=== PATIENT | male | born 1975 | race Caucasian/White ===

== ENCOUNTER 2019-10-27 12:56 | Emergency (ER) | payer MEDICAID, SELFPAY | END 2019-10-27 15:16 | disposition home or self-care (01) | PROVIDERS: Emergency Provider Nurse Practitioner Family; Family Provider Family Medicine; Visit Provider Nurse Practitioner Family | DX: J44.0 Chronic obstructive pulmonary disease with (acute) lower respiratory infection (principal); J20.9 Acute bronchitis, unspecified; Z87.891 Personal history of nicotine dependence ==

== ENCOUNTER 2019-11-04 07:09 | Day surgery (SDC) | payer MEDICAID, SELFPAY ==
[2019-11-02 12:39] VITALS: BMI 31.9
[2019-11-04 07:22] VITALS: BP 111/75; PULSE 107; RESP 18; TEMP 36.1; O2SAT 92
[2019-11-04 07:23] VITALS: BP 126/93; PULSE 128; RESP 18; TEMP 36.2; O2SAT 94
[2019-11-04 07:45] VITALS: BMI 31.9
[2019-11-04] MEDS: sodium chloride 0.9% 1,000 ML 30 ML IV (07:50)
--- NOTE | 2019-11-04 07:51 | XR_ITS ---
WS: [id number] CHEST XRAY TECHNIQUE: Portable chest. CLINICAL INFORMATION: PREOP DEFIBRILLATOR GENERATOR EXCHANGE COMPARISON: FINDINGS: AICD. Heart: Normal cardiac silhouette. Lungs: Lungs are clear. No consolidation or pleural effusion. Bones: Normal visualized bony structures. XR/XR chest 1V portable [id number] IMPRESSION: No acute chest findings
--- NOTE | 2019-11-04 07:57 | ANES.PREANES ---
Pre-Anesthetic Assessment Pre-Anesthetic Assessment: Height/Weight: Height 1.7 m Weight 92.533 kg Temp Pulse Resp BP Pulse Ox 97.2 F L 128 H 18 126/93 94 11/04/19 07:23 11/04/19 07:23 11/04/19 07:23 11/04/19 07:23 11/04/19 07:23 Proposed Procedure: Operation Date: 11/04/19 08:45 Proposed Procedures p Defibillator Generator Exchange(Not Applicable) - Yoel Aparicio MD Social: Social History: No alcohol and No tobacco Exam: Pre-Anes Outpt Exam: alert, oriented x 3, clear to auscultation bilaterally and regular rate & rhythm Airway: Cervical ROM: WNL MP: 1 Dentition: False (top dentures) and Other (missing (multiple)) Pulmonary: Pulmonary: Sleep apnea (cpap) and URI (possible recent bronchitis (1 week ago - no left over symptoms, took antibiotics and inhaler)) CV/HEM: CV/HEM: CHF ( patient states hx of EF of 33%) : : None reported Hepatic: Hepatic: None reported GI: GI: None reported Metabolic: Metabolic: DM Musc/skel: Musc/skel: OA/DJD Neuropsych: Neuropsych: Depression Anesthetic Plan: ASA status: IV Anesthesia: MAC Risk of > 500 ml blood loss (7ml/kg in children): No PFSH Anesthesia PFSH: Family History (Updated 10/25/19 @ 14:31 by Yu Abbott LPN) Father Myocardial infarct CABG Diabetes CAD (coronary artery disease) Mother Diabetes Hypertension Other Cancer Stroke Denies family history of Anesthesia complication Bleeding disorder Data Anesthesia Cardiac Studies: No Data to Display
[2019-11-04 07:58] LABS: Glucose Point of Care 248 mg/dL (70-110)
--- NOTE | 2019-11-04 09:12 | PM.OPSURHP ---
Providers/Chief Complaint Admitting Physician: Markus Primary Care Provider: Héctor Snyder MD Chief Complaint: generator exchange generator exchange History of Present Illness Nguyễn Nieto is a 44 year old male who presents for planned pacing defibrillator change with the current defibrillator at end of service. He has a history of CHF and nonischemic cardiomyopathy. Ejection fraction 35%. He reports he believes the defibrillator discharge once last year. Review of Systems General: Reports: 10 or more systems reviewed and unremarkable except in HPI and below Const: Denies: fever or chills Card: Reports: edema and shortness of breath on exertion; Denies: chest pain Resp: Reports: shortness of breath Skin/Breast: Denies: rash Psych: Denies: anxiety or depression Endo: Denies: cold intolerance Medications/Allergies Home Medications Medication Instructions Recorded Confirmed Last Taken Type tiagabine [Gabitril] 4 mg PO DAILY 11/04/19 11/04/19 11/03/19 History vortioxetine [Trintellix] 10 mg PO DAILY 11/04/19 11/04/19 11/02/19 History Allergies Allergy/AdvReac Type Severity Reaction Status Date / Time atorvastatin AdvReac pancreatiti Verified 11/04/19 07:25 s liraglutide [From Victoza] AdvReac pancreatiti Verified 11/04/19 07:25 s metformin AdvReac pancreatiti Verified 11/04/19 07:25 s sitagliptin [From Januvia] AdvReac pancreatiti Verified 11/04/19 07:25 s PFSH PFSH: Statuses (acute, chronic, etc) shown below reflect problem list status as previously entered and may not be historically accurate Surgical History (Updated 11/04/19 @ 09:14 by Yoel Aparicio MD) Status post implantation of automatic cardioverter/defibrillator (AICD) (Acute) Family History (Updated 10/25/19 @ 14:31 by Yu Abbott LPN) Father Myocardial infarct CABG Diabetes CAD (coronary artery disease) Mother Diabetes Hypertension Other Cancer Stroke Denies family history of Anesthesia complication Bleeding disorder Vital Signs Vitals Signs: Last Vital Signs Temp 97.2 F L 11/04/19 07:23 Pulse 128 H 11/04/19 07:23 Resp 18 11/04/19 07:23 BP 126/93 11/04/19 07:23 Pulse Ox 94 11/04/19 07:23 Weight: Weight last 48 hrs Weight 204 lb Weight 204 lb Physical Exam Narrative: EXAM NARRATIVE: Well-developed middle-aged gentleman in no apparent distress Resp: COMMON NORMALS: normal respiratory effort AUSCULTATION: clear to auscultation bilaterally Cardio: COMMON NORMALS: no JVD, regular rate, regular rhythm, S1 normal heart sound and no murmurs RATE: regular rate and bradycardic RHYTHM: regular rhythm HEART SOUNDS: S1 normal and S2 normal Extremity: COMMON NORMALS: no clubbing, cyanosis or edema GENERAL: Yes normal exam except as noted A&P Assessment and plan (1) Status post implantation of automatic cardioverter/defibrillator (AICD): 44-year-old gentleman with pacing cardiac defibrillator in place now at end of service. Generator replacement is required. Rationale for this was carefully discussed. Particular risk related to infection, bleeding, or injury to the leads was carefully discussed. Appropriate consents have been provided for review and signature. Status: Acute Code(s): Z95.810 - Presence of automatic (implantable) cardiac defibrillator Coding Level of Care Code Acute Steel Plate Printer for Chg Fwd Diagnoses Status post implantation of automatic cardioverter/defibrillator (AICD) Z95.810
[2019-11-04 09:13] LABS: Basophils % 0.4 %; Eosinophils # 0.1 10^3/uL (0.0-0.8); Eosinophils % 1.2 %; Hematocrit 42.1 % (42.0-52.0); Hemoglobin 14.8 g/dL (11.7-16.6); Lymphocytes # 2.3 10^3/uL (0.8-4.8); Lymphocytes % 28.1 %; Mean Corpuscular HGB Conc 35.2 g/dL (30.0-36.0); Mean Corpuscular Volume 88.3 fL (80-94); Mean Platelet Volume 9.6 fL (7.4-10.4); Monocytes # 0.6 10^3/uL (0.2-0.9); Monocytes % 7.1 %; Neutrophils % 59.9 %; Nucleated Red Blood Cells % 0 %; Platelet Count 357 10^3/cmm (130-400); Red Blood Count 4.77 10^6/uL (4.1-5.3); Red Cell Distribution Width 11.9 % (12.1-15.1); White Blood Count 8.3 10^3/uL (4.0-10.0)
[2019-11-04] MEDS: ceFAZolin 1,000 mg SDV 1000 MG IRRIGATION (09:38)
[2019-11-04 09:40] LABS: Anion Gap 16.9 (5-19); Blood Urea Nitrogen 20 mg/dL (6-20); Calcium 9.5 mg/Dl (8.6-10.0); Carbon Dioxide 26 mmol/L (22-29); Chloride 94 mmol/L (98-107); Glomerular Filtration Rate 92.5 mL/min (90-130); Glucose 293 mg/dL (74-109); Potassium 3.9 mmol/L (3.5-5.1); Sodium 133 mmol/L (136-145)
[2019-11-04] MEDS: lidocaine 1% INJ 20 mL INJECTION (09:47)
--- NOTE | 2019-11-04 10:21 | P.OP_ITS ---
Operative Report Post-Operative Note: Date of procedure: 11/04/19 Preop Diagnosis: Pacemaker generator defibrillator at end of service Post-op diagnosis: same Procedure Done: Pacing defibrillator generator exchange Implants: [employer] defibrillator model number DDM [id number] Serial number [id number] Specimens removed/disposition: Old generator delivered to [employer] circulation sales representative Surgeon: Yoel Aparicio Anesthesia: MAC (13 cc of 1% lidocaine infiltrated locally) Estimated blood loss (mL): 10 IV fluids (mL): 250 Complications: None Condition: stable Disposition: same day Operative Report: Brief History: 44-year-old gentleman with nonischemic cardiomyopathy with [employer] defibrillator in place with generator now at end of service. Generator replacement has been recommended. Rationale was carefully discussed. Details and risks of procedure were reviewed. Procedure: Patient was appropriately positioned and sterilely prepped and draped. IV consicious sedation was given with anesthesia monitoring. 1% lidocaine was infiltrated through the prior insertion incision site. # 15 scalpel blade was used to incise the skin down to subcutaneous layer. Subsequently, using sharp and blunt dissection the pseudocapsule to the old generator was reached and opened with a scalpel blade. This area was then enhanced utilizing Metzenbaum scissors with care taken not to injure the pacing leads. Once the pocket was adequate opened, hemostats were utilized to deliver the old generator. Set screws were released and the leads were removed and inserted properly into the new generator with set screws then secured. The old generator was removed from the field. The incision was irrigated with antibiotic solution. Hemostasis was confirmed. The new generator was placed back into the old subcutaneous pocket. The wound was then closed in 2 layers of 3-0 Vicryl suture. Skin was closed in a subcuticular manner with 4-0 undyed Vicryl suture. A 2 layer pressure dressing was then applied. The entire system was interrogated and appropriate parameters obtained. Patient tolerated procedure well and was taken to the recovery room in stable condition. I did certified drug counselor with Mr. Nieto's family at the completion of the procedure. He was then transported back to outpatient surgery department in stable condition. Coding Level of Care Code Acute Residential Sales Associate for Keith Robertson
[2019-11-04 10:33] VITALS: BP 109/73; PULSE 107; RESP 18; TEMP 36.1; O2SAT 96
== END 2019-11-04 11:06 | disposition home or self-care (01) ==
PROVIDERS: Family Provider Family Medicine; PCP Family Medicine; Visit Provider Thoracic Surgery (Cardiothoracic Vascular Surgery)
PROC: 0JPT0PZ Removal of Cardiac Rhythm Related Device from Trunk Subcutaneous Tissue and Fascia, Open Approach (ICD-10-PCS; CPT 33263; principal; 2019-11-04 08:45)
DX: Z45.09 Encounter for adjustment and management of other cardiac device (principal); Z82.49 Family history of ischemic heart disease and other diseases of the circulatory system; Z83.3 Family history of diabetes mellitus; G47.30 Sleep apnea, unspecified; M19.90 Unspecified osteoarthritis, unspecified site; E11.9 Type 2 diabetes mellitus without complications
CPT/HCPCS: 33263; 36415; 36416; 71045; 80048; 82962; 85025; 96365; C1721; J0690; J2001; J2704; J3010; J3490; J7030

== ENCOUNTER → 2019-11-06 11:03 | Outpatient (BNVA) | payer MEDICAID, SELFPAY | PROVIDERS: Family Provider Family Medicine; PCP Family Medicine; Visit Provider Nurse Practitioner | DX: M47.816 Spondylosis without myelopathy or radiculopathy, lumbar region (principal); M51.36 Other intervertebral disc degeneration, lumbar region; M19.90 Unspecified osteoarthritis, unspecified site; Z79.891 Long term (current) use of opiate analgesic | CPT/HCPCS: 99213 ==

== ENCOUNTER → 2019-11-13 10:39 | Outpatient (BNVA) | payer MEDICAID, SELFPAY | PROVIDERS: Family Provider Family Medicine; PCP Family Medicine; Visit Provider Nurse Practitioner | DX: F43.12 Post-traumatic stress disorder, chronic (principal); F41.1 Generalized anxiety disorder; F42.8 Other obsessive-compulsive disorder | CPT/HCPCS: 99213 ==

== ENCOUNTER 2020-01-03 15:57 | Emergency (ER) | payer MEDICAID, SELFPAY ==
[2020-01-03 15:58] VITALS: BMI 32.7
--- NOTE | 2020-01-03 15:58 | ED_ITS ---
Entered by Jazz Teixeira, acting as scribe for Alyssia Urena DO Documented by User: Alyssia Urena DO 01/03/20 18:03 HPI - Chest Pain General: Chief Complaint: Chest Pain Stated Complaint: CHEST PAIN Time Seen by Provider: 01/03/20 15:58 Source: patient, EMS and RN notes reviewed Mode of arrival: EMS Limitations: no limitations History of Present Illness: HPI narrative: 44 yo male presents to ED with complaints of chest pain. The patient states 15 minutes prior to his chest pain he had nausea and sweats. He said the next thing he knew, his was flipping out over him ; he doesn't remember passing out. He said this occurred about 45 min ago (1515). He said he feels a little weak stomached that's about it . His publicity director is Dr Aceves (last seen him about 6 months ago). He said oddly my hands were swollen earlier when they normally are not and my L arm was cramping from his elbow to his wrist . MD complaint: chest pain Pertinent past history: CABG Onset (ago): minute(s) (45 (1515)) Timing of current episode: episodic Prior episodes: No Onset: during rest Pain location: substernal Pain radiation: none Severity: moderate Quality: sharp Relieving factors: nothing Exacerbating factors: nothing Context: other (defibrillator/pacemaker replaced 6 months ago) Associated symptoms: Deny abdominal pain, dyspnea, fever(s), nausea or vomiting Treatment prior to arrival: none Risk Factors: Coronary artery disease risk factors: diabetes Thoracic aortic dissection risk factors: none Review of Systems General: Reports: 10 or more systems reviewed and unremarkable except in HPI and below Const: Denies: fever or fatigue ENMT: Denies: throat pain Card: Denies: swelling of feet/ankles Resp: Denies: shortness of breath or productive cough GI: Denies: abdominal pain, nausea, vomiting, diarrhea, constipation or blood in stool Musc: Denies: back pain or extremity swelling Skin/Breast: Denies: rash Neuro: Denies: headache, numbness in extremities or weakness in extremities [facility] ED PFSH: Medical History Arthritis Chronic GERD DDD (degenerative disc disease), lumbar Facet arthritis of lumbar region Generalized anxiety disorder Long-term use of high-risk medication Obstructive sleep apnea, adult Other obsessive-compulsive disorder Post-traumatic stress disorder, chronic Spondylosis without myelopathy or radiculopathy, lumbar region Surgical History Hx of lymph node excision SEVERAL REMOVED FROM LEFT SIDE/ NECK S/P eye surgery LEFT EYE Status post implantation of automatic cardioverter/defibrillator (AICD) Status post placement of cardiac pacemaker Family History Father Myocardial infarct CABG Diabetes CAD (coronary artery disease) Mother Diabetes Hypertension Other Cancer Stroke Denies family history of Anesthesia complication Bleeding disorder Social History Smoking and tobacco status: former smoker Quit status (tobacco): has quit using tobacco Former quit date comment: 11 YEARS AGO Second hand smoke exposure: Yes Alcohol intake: never Physical Exam Const: COMMON NORMALS: no apparent distress and oriented x3 GENERAL APPEARANCE: cooperative; not in distress HENMT: COMMON NORMALS: normocephalic HEAD & SCALP: normal to inspection and normocephalic MOUTH: oral and palatal mucosa normal and lip normal THROAT: posterior oropharynx normal and tonsils normal Neck/C-Spine: COMMON NORMALS: full ROM, no lymphadenopathy, supple and no meningeal signs GENERAL: Yes normal visual inspection and Yes trachea midline Chest: COMMONS NORMALS: inspection of chest normal Resp: COMMON NORMALS: normal respiratory effort and clear to auscultation bilaterally EFFORT & INSPECTION: Yes able to speak in complete sentences and No respiratory distress AUSCULTATION: clear to auscultation bilaterally, no rales, no rhonchi and no wheezes Cardio: COMMON NORMALS: regular rhythm, S1 normal heart sound and S2 normal heart sound RATE: tachycardic RHYTHM: regular rhythm HEART SOUNDS: S1 normal and S2 normal PERIPHERAL PULSES: radial pulses present and dorsalis pedis pulses present GI: COMMON NORMALS: normal to inspection, nondistended, normoactive bowel sounds, soft to palpation and non-tender INSPECTION: Yes normal to inspection AUSCULTATION: Yes normoactive bowel sounds PALPATION: Yes soft, No tender, No guarding and No rigid RECTAL EXAM: Yes deferred : COMMON NORMALS: Yes no CVA tenderness BLADDER/KIDNEY EXAM: Yes no CVA tenderness Back/Pelvis: COMMON NORMALS: no CVA tenderness Extremity: COMMON NORMALS: normal to inspection, full ROM, no calf tenderness and no pedal edema; negative for normal capillary refill Neuro: COMMON NORMALS: oriented x3, CN's II-XII intact bilaterally, moves all extremities and no focal motor deficits MENINGEAL SIGNS: Yes no meningeal signs Skin: COMMON NORMALS: no rashes or lesions noted GENERAL SKIN EXAM: no rashes or lesions noted Course Vital Signs: Vital signs: Vital Signs Temperature 98.6 F 01/03/20 16:02 Pulse Rate 106 H 01/03/20 18:37 Respiratory Rate 16 01/03/20 18:37 Blood Pressure 120/90 01/03/20 18:37 Pulse Oximetry 96 01/03/20 18:37 MDM - Chest Pain MDM Narrative: Medical decision making narrative: Pt states he has never had blockages in his coronary arteries. He has a heart score of 3 and is low risk for acs, we are waiting for his 2 hour trop. Lab Data: Attestation: I reviewed the patient's lab results. Labs: Lab Results 01/03/20 01/03/20 01/03/20 Range/Units 15:50 15:50 15:50 WBC 9.7 (4.0-10.0) 10^3/ uL RBC 4.70 (4.1-5.3) 10^6/u L Hgb 14.3 (11.7-16.6) g/dL Hct 41.3 L (42.0-52.0) % MCV 87.9 (80-94) fL MCH 30.4 (28.0-34.0) pg MCHC 34.6 (30.0-36.0) g/dL RDW 12.2 (12.1-15.1) % Plt Count 305 (130-400) 10^3/c mm MPV 9.8 (7.4-10.4) fL Neut % (Auto) 68.2 % Lymph % (Auto) 21.7 % Deuel % (Auto) 8.1 % Eos % (Auto) 0.8 % Baso % (Auto) 0.4 % Neut # (Auto) 6.6 (1.8-7.7) 10^3/u L Lymph # (Auto) 2.1 (0.8-4.8) 10^3/u L Deuel # (Auto) 0.8 (0.2-0.9) 10^3/u L Eos # (Auto) 0.1 (0.0-0.8) 10^3/u L Baso # (Auto) 0.0 (0.0-0.1) 10^3/u L Nucleated RBC % (a uto) 0 % Nucleated RBCs # 0.0 /100WBC Sodium 135 L (136-145) mmol/L Potassium 3.5 (3.5-5.1) mmol/L Chloride 94 L (98-107) mmol/L Carbon Dioxide 24 (22-29) mmol/L Anion Gap 20.5 H (5-19) BUN 17 (6-20) mg/dL Creatinine 1.2 (0.7-1.2) mg/dL GFR Calculation 66.4 L (90-130) mL/min Glucose 122 H (65-115) mg/dL Calcium 9.4 (8.5-10.5) mg/dL Total Bilirubin 0.3 (0.15-1.2) mg/dL AST 18 (0-40) U/L ALT 34 (0-41) U/L Alkaline Phosphata se 121 (40-130) IU/L Troponin T Baselin e 6 (0-15) ng/mL Troponin T 120 Min tolowa dee-ni' (0-15) ng/mL Delta Troponin T (0-10) ABS# NT-Pro-B Natriuret Pep (0-125) pg/mL Total Protein 7.2 (6.6-8.7) g/dL Albumin 4.4 (3.5-5.2) g/dL Globulin 2.8 (1.3-4.6) g/dL 01/03/20 01/03/20 Range/Units 15:50 17:35 WBC (4.0-10.0) 10^3/ uL RBC (4.1-5.3) 10^6/u L Hgb (11.7-16.6) g/dL Hct (42.0-52.0) % MCV (80-94) fL MCH (28.0-34.0) pg MCHC (30.0-36.0) g/dL RDW (12.1-15.1) % Plt Count (130-400) 10^3/c mm MPV (7.4-10.4) fL Neut % (Auto) % Lymph % (Auto) % Deuel % (Auto) % Eos % (Auto) % Baso % (Auto) % Neut # (Auto) (1.8-7.7) 10^3/u L Lymph # (Auto) (0.8-4.8) 10^3/u L Deuel # (Auto) (0.2-0.9) 10^3/u L Eos # (Auto) (0.0-0.8) 10^3/u L Baso # (Auto) (0.0-0.1) 10^3/u L Nucleated RBC % (a uto) % Nucleated RBCs # /100WBC Sodium (136-145) mmol/L Potassium (3.5-5.1) mmol/L Chloride (98-107) mmol/L Carbon Dioxide (22-29) mmol/L Anion Gap (5-19) BUN (6-20) mg/dL Creatinine (0.7-1.2) mg/dL GFR Calculation (90-130) mL/min Glucose (65-115) mg/dL Calcium (8.5-10.5) mg/dL Total Bilirubin (0.15-1.2) mg/dL AST (0-40) U/L ALT (0-41) U/L Alkaline Phosphata se (40-130) IU/L Troponin T Baselin e (0-15) ng/mL Troponin T 120 Min tolowa dee-ni' 6.00 (0-15) ng/mL Delta Troponin T 0 (0-10) ABS# NT-Pro-B Natriuret Pep 32 (0-125) pg/mL Total Protein (6.6-8.7) g/dL Albumin (3.5-5.2) g/dL Globulin (1.3-4.6) g/dL Imaging Data^: CXR: Radiologist's impression: [address] [address] XRay Report Signed Patient: Nguyễn Nieto Lance #: [id number] : 1975Acct#:[id number] Age/Sex: 44 / MADM Date: 01/03/20 Loc: ERRoom/Bed: Attending Dr: Ordering Provider/Ordering MD: Alyssia Urena DO Date of Service: 01/03/20 Procedure(s): XR chest 1V portable 97230 Accession Number(s): [id number] Report Number: [id number] WS: [id number] XR chest 1V portable [id number] REASON FOR EXAM: chest pain FINDINGS: Borderline cardiomegaly is noted. A dual electrode pacemaker seen. Electrodes are in good position. The lung turner are normally aerated. There is no pneumonia, pleural effusion, pulmonary edema, pneumothorax, or mass effect. No osseous abnormalities. The hilum and apices are normal. XR/XR chest 1V portable [id number] IMPRESSION: Dual electrode pacemaker. Borderline cardiomegaly. Dictated By:Harley Lopez DO Signed By:Harley Lopez DOSigned Date/Time:01/03/20 1625 DD/ EKG Data^: EKG 1: Attestation: I personally reviewed and interpreted this EKG as follows: EKG interpretation time: 16:07 Prior EKG tracings: not available for review Interpretation: tachy rate of 108, normal st seg, regular Discharge Plan Discharge Patient Disposition: Home, Self-Care Clinical Impression: Chest pain Qualifiers: Chest pain type: unspecified Qualified Code(s): R07.9 - Chest pain, unspecified Cardiomyopathy Qualifiers: Cardiomyopathy type: other Qualified Code(s): I42.8 - Other cardiomyopathies Condition: Stable Prescriptions: No Action tiagabine [Gabitril] 4 mg tablet 8 mg PO ONCE Qty: 60 RF: 1 hydrocodone-acetaminophen 5-325 mg tablet 1 tab PO BID PRN (Reason: Pain) 30 Days Qty: 60 RF: 0 Trintellix 10 mg tablet 10 mg PO DAILY Qty: 30 RF: 2 clomipramine 25 mg capsule 25 mg PO DIRECTED Qty: 120 RF: 2 clonazepam 1 mg tablet 1 mg PO DIRECTED Qty: 90 RF: 2 acarbose 25 mg tablet 25 mg PO TID RF: 0 glyburide 2.5 mg tablet 2.5 mg PO DAILY RF: 0 furosemide [Lasix] 40 mg tablet 40 mg PO QAM RF: 0 insulin detemir U-100 100 unit/mL (3 mL) insulin pen 15 unit SUBCUT .hs RF: 0 nitroglycerin [Nitrostat] 0.4 mg tablet, sublingual 0.4 mg SUBLINGUAL Q5M PRN (Reason: Chest Pain) RF: 0 Novolog Flexpen U-100 Insulin 100 unit/mL (3 mL) insulin pen 2 unit SUBCUT .with meals RF: 0 potassium chloride 10 mEq tablet extended release 10 meq PO DIRECTED RF: 0 selenium sulfide 2.25 % shampoo 5 ml TOPICAL DAILY RF: 0 triamcinolone acetonide 0.025 % cream 1 applic TOPICAL TID RF: 0 cholecalciferol (vitamin D3) 50 mcg (2,000 unit) capsule 50 mcg PO DAILY RF: 0 metoprolol tartrate 25 mg tablet 12.5 mg PO BID RF: 0 Discharge Orders: Discharge Order (Routine); Ordered 01/03/20 Ordered By: Alyssia Urena Referrals: Sandro Aceves MD [Physician] - 1-3 days Héctor Snyder MD [Primary Care Provider] - Discharge Diet: Advance as tolerated Discharge Activity: Resume usual activity Patient Instructions: Chest Pain (ED) Activity Restrictions/Additional Instructions: case management will order an outpt echo of your heart and a stress test. You are to f/u with Dr Aceves, you are to return if worse, any problem, any change. Discharge Date/Time: 01/03/20 18:38 Coding Level of Care Code ED Petrol Tanker Driver for Chg Fwd Exam Comprehensive Documented by User: Valdez Cross DO 01/03/20 18:57 HPI - Chest Pain General: Chief Complaint: Chest Pain Stated Complaint: CHEST PAIN Time Seen by Provider: 01/03/20 15:58 PFSH ED PFSH: Medical History Arthritis Chronic GERD DDD (degenerative disc disease), lumbar Facet arthritis of lumbar region Generalized anxiety disorder Long-term use of high-risk medication Obstructive sleep apnea, adult Other obsessive-compulsive disorder Post-traumatic stress disorder, chronic Spondylosis without myelopathy or radiculopathy, lumbar region Surgical History Hx of lymph node excision SEVERAL REMOVED FROM LEFT SIDE/ NECK S/P eye surgery LEFT EYE Status post implantation of automatic cardioverter/defibrillator (AICD) Status post placement of cardiac pacemaker Family History Father Myocardial infarct CABG Diabetes CAD (coronary artery disease) Mother Diabetes Hypertension Other Cancer Stroke Denies family history of Anesthesia complication Bleeding disorder Social History Smoking and tobacco status: former smoker Quit status (tobacco): has quit using tobacco Former quit date comment: 11 YEARS AGO Second hand smoke exposure: Yes Alcohol intake: never Course Vital Signs: Vital signs: Vital Signs Temperature 98.6 F 01/03/20 16:02 Pulse Rate 106 H 01/03/20 18:37 Respiratory Rate 16 01/03/20 18:37 Blood Pressure 120/90 01/03/20 18:37 Pulse Oximetry 96 01/03/20 18:37 MDM - Chest Pain Lab Data: Labs: Lab Results 01/03/20 01/03/20 01/03/20 Range/Units 15:50 15:50 15:50 WBC 9.7 (4.0-10.0) 10^3/ uL RBC 4.70 (4.1-5.3) 10^6/u L Hgb 14.3 (11.7-16.6) g/dL Hct 41.3 L (42.0-52.0) % MCV 87.9 (80-94) fL MCH 30.4 (28.0-34.0) pg MCHC 34.6 (30.0-36.0) g/dL RDW 12.2 (12.1-15.1) % Plt Count 305 (130-400) 10^3/c mm MPV 9.8 (7.4-10.4) fL Neut % (Auto) 68.2 % Lymph % (Auto) 21.7 % Deuel % (Auto) 8.1 % Eos % (Auto) 0.8 % Baso % (Auto) 0.4 % Neut # (Auto) 6.6 (1.8-7.7) 10^3/u L Lymph # (Auto) 2.1 (0.8-4.8) 10^3/u L Deuel # (Auto) 0.8 (0.2-0.9) 10^3/u L Eos # (Auto) 0.1 (0.0-0.8) 10^3/u L Baso # (Auto) 0.0 (0.0-0.1) 10^3/u L Nucleated RBC % (a uto) 0 % Nucleated RBCs # 0.0 /100WBC Sodium 135 L (136-145) mmol/L Potassium 3.5 (3.5-5.1) mmol/L Chloride 94 L (98-107) mmol/L Carbon Dioxide 24 (22-29) mmol/L Anion Gap 20.5 H (5-19) BUN 17 (6-20) mg/dL Creatinine 1.2 (0.7-1.2) mg/dL GFR Calculation 66.4 L (90-130) mL/min Glucose 122 H (65-115) mg/dL Calcium 9.4 (8.5-10.5) mg/dL Total Bilirubin 0.3 (0.15-1.2) mg/dL AST 18 (0-40) U/L ALT 34 (0-41) U/L Alkaline Phosphata se 121 (40-130) IU/L Troponin T Baselin e 6 (0-15) ng/mL Troponin T 120 Min tolowa dee-ni' (0-15) ng/mL Delta Troponin T (0-10) ABS# NT-Pro-B Natriuret Pep (0-125) pg/mL Total Protein 7.2 (6.6-8.7) g/dL Albumin 4.4 (3.5-5.2) g/dL Globulin 2.8 (1.3-4.6) g/dL 01/03/20 01/03/20 Range/Units 15:50 17:35 WBC (4.0-10.0) 10^3/ uL RBC (4.1-5.3) 10^6/u L Hgb (11.7-16.6) g/dL Hct (42.0-52.0) % MCV (80-94) fL MCH (28.0-34.0) pg MCHC (30.0-36.0) g/dL RDW (12.1-15.1) % Plt Count (130-400) 10^3/c mm MPV (7.4-10.4) fL Neut % (Auto) % Lymph % (Auto) % Deuel % (Auto) % Eos % (Auto) % Baso % (Auto) % Neut # (Auto) (1.8-7.7) 10^3/u L Lymph # (Auto) (0.8-4.8) 10^3/u L Deuel # (Auto) (0.2-0.9) 10^3/u L Eos # (Auto) (0.0-0.8) 10^3/u L Baso # (Auto) (0.0-0.1) 10^3/u L Nucleated RBC % (a uto) % Nucleated RBCs # /100WBC Sodium (136-145) mmol/L Potassium (3.5-5.1) mmol/L Chloride (98-107) mmol/L Carbon Dioxide (22-29) mmol/L Anion Gap (5-19) BUN (6-20) mg/dL Creatinine (0.7-1.2) mg/dL GFR Calculation (90-130) mL/min Glucose (65-115) mg/dL Calcium (8.5-10.5) mg/dL Total Bilirubin (0.15-1.2) mg/dL AST (0-40) U/L ALT (0-41) U/L Alkaline Phosphata se (40-130) IU/L Troponin T Baselin e (0-15) ng/mL Troponin T 120 Min tolowa dee-ni' 6.00 (0-15) ng/mL Delta Troponin T 0 (0-10) ABS# NT-Pro-B Natriuret Pep 32 (0-125) pg/mL Total Protein (6.6-8.7) g/dL Albumin (3.5-5.2) g/dL Globulin (1.3-4.6) g/dL Discharge Plan Discharge Patient Disposition: Home, Self-Care Clinical Impression: Chest pain Qualifiers: Chest pain type: unspecified Qualified Code(s): R07.9 - Chest pain, unspecified Cardiomyopathy Qualifiers: Cardiomyopathy type: other Qualified Code(s): I42.8 - Other cardiomyopathies Condition: Stable Prescriptions: No Action tiagabine [Gabitril] 4 mg tablet 8 mg PO ONCE Qty: 60 RF: 1 hydrocodone-acetaminophen 5-325 mg tablet 1 tab PO BID PRN (Reason: Pain) 30 Days Qty: 60 RF: 0 Trintellix 10 mg tablet 10 mg PO DAILY Qty: 30 RF: 2 clomipramine 25 mg capsule 25 mg PO DIRECTED Qty: 120 RF: 2 clonazepam 1 mg tablet 1 mg PO DIRECTED Qty: 90 RF: 2 acarbose 25 mg tablet 25 mg PO TID RF: 0 glyburide 2.5 mg tablet 2.5 mg PO DAILY RF: 0 furosemide [Lasix] 40 mg tablet 40 mg PO QAM RF: 0 insulin detemir U-100 100 unit/mL (3 mL) insulin pen 15 unit SUBCUT .hs RF: 0 nitroglycerin [Nitrostat] 0.4 mg tablet, sublingual 0.4 mg SUBLINGUAL Q5M PRN (Reason: Chest Pain) RF: 0 Novolog Flexpen U-100 Insulin 100 unit/mL (3 mL) insulin pen 2 unit SUBCUT .with meals RF: 0 potassium chloride 10 mEq tablet extended release 10 meq PO DIRECTED RF: 0 selenium sulfide 2.25 % shampoo 5 ml TOPICAL DAILY RF: 0 triamcinolone acetonide 0.025 % cream 1 applic TOPICAL TID RF: 0 cholecalciferol (vitamin D3) 50 mcg (2,000 unit) capsule 50 mcg PO DAILY RF: 0 metoprolol tartrate 25 mg tablet 12.5 mg PO BID RF: 0 Discharge Orders: Discharge Order (Routine); Ordered 01/03/20 Ordered By: Alyssia Urena Referrals: Sandro Aceves MD [Physician] - 1-3 days Héctor Snyder MD [Primary Care Provider] - Discharge Diet: Advance as tolerated Discharge Activity: Resume usual activity Patient Instructions: Chest Pain (ED) Activity Restrictions/Additional Instructions: case management will order an outpt echo of your heart and a stress test. You are to f/u with Dr Aceves, you are to return if worse, any problem, any change. Discharge Date/Time: 01/03/20 18:38 Coding Level of Care Code ED Petrol Tanker Driver for Chg Fwd Exam Comprehensive The documentation recorded by the Lluvia aguirre Valerie R, accurately reflects the service I personally performed and the decisions made by me, Alyssia Urena, DO
[2020-01-03 16:02] VITALS: BP 135/89; PULSE 112; RESP 18; TEMP 37; O2SAT 98
--- NOTE | 2020-01-03 16:10 | XR_ITS ---
WS: [id number] XR chest 1V portable [id number] REASON FOR EXAM: chest pain FINDINGS: Borderline cardiomegaly is noted. A dual electrode pacemaker seen. Electrodes are in good position. The lung turner are normally aerated. There is no pneumonia, pleural effusion, pulmonary edema, pneum othorax, or mass effect. No osseous abnormalities. The hilum and apices are normal. XR/XR chest 1V portable [id number] IMPRESSION: Dual electrode pacemaker. Borderline cardiomegaly.
--- NOTE | 2020-01-03 16:10 | ECG_ITS ---
Measurements Intervals [place] Rate: 108 P: 7 ID: [id number] QRS: 32 QRSD: 86 T: 6 QT: 360 QTc: 484 SINUS TACHYCARDIA Compared to ECG 10/27/2019 14:13:07 T-wave abnormality no longer present Electronically Signed On 01-03-2020 16:46:04 VEHICLE ASSEMBLY INSPECTOR by Jewell Cabrera M.D. [id number]
[2020-01-03 16:29] LABS: Basophils % 0.4 %; Eosinophils # 0.1 10^3/uL (0.0-0.8); Eosinophils % 0.8 %; Hematocrit 41.3 % (42.0-52.0); Hemoglobin 14.3 g/dL (11.7-16.6); Lymphocytes # 2.1 10^3/uL (0.8-4.8); Lymphocytes % 21.7 %; Mean Corpuscular HGB Conc 34.6 g/dL (30.0-36.0); Mean Corpuscular Hemoglobin 30.4 pg (28.0-34.0); Mean Corpuscular Volume 87.9 fL (80-94); Mean Platelet Volume 9.8 fL (7.4-10.4); Monocytes # 0.8 10^3/uL (0.2-0.9); Monocytes % 8.1 %; Neutrophils # 6.6 10^3/uL (1.8-7.7); Neutrophils % 68.2 %; Nucleated Red Blood Cells % 0 %; Platelet Count 305 10^3/cmm (130-400); Red Cell Distribution Width 12.2 % (12.1-15.1); White Blood Count 9.7 10^3/uL (4.0-10.0)
[2020-01-03] MEDS: aspirin 81 mg Chew Tablet 324 MG PO (16:34)
[2020-01-03 17:00] LABS: Alanine Aminotransferase 34 U/L (0-41); Albumin Level 4.4 g/dL (3.5-5.2); Alkaline Phosphatase 121 IU/L (40-130); Anion Gap 20.5 (5-19); Aspartate Amino Transferase 18 U/L (0-40); Blood Urea Nitrogen 17 mg/dL (6-20); Calcium 9.4 mg/dL (8.5-10.5); Carbon Dioxide 24 mmol/L (22-29); Chloride 94 mmol/L (98-107); Globulin 2.8 g/dL (1.3-4.6); Glomerular Filtration Rate 66.4 mL/min (90-130); Glucose 122 mg/dL (65-115); Potassium 3.5 mmol/L (3.5-5.1); Sodium 135 mmol/L (136-145); Total Bilirubin 0.3 mg/dL (0.15-1.2); Total Protein 7.2 g/dL (6.6-8.7)
[2020-01-03 17:01] LABS: Troponin(5th) Baseline 6 ng/mL (0-15)
[2020-01-03 17:56] LABS: NT Pro B Type Natriuretic Pept 32 pg/mL (0-125)
[2020-01-03 17:58] LABS: Troponin 5 2HR Delta 0 ABS# (0-10)
[2020-01-03 18:37] VITALS: BP 120/90; PULSE 106; RESP 16; O2SAT 96
--- NOTE | 2020-01-03 22:10 | ECG_ITS ---
Measurements Intervals [place] Rate: 84 P: 61 MA: 156 QRS: 9 QRSD: 93 T: 61 QT: 391 QTc: 464 SINUS RHYTHM NONSPECIFIC T-WAVE ABNORMALITY Compared to ECG 01/03/2020 16:07:24 T-wave abnormality now present Sinus tachycardia no longer present Electronically Signed On 01-04-2020 8:23:08 ADJUNCT WRITING INSTRUCTOR by Jewell Cabrera M.D. [id number]
--- NOTE | 2020-01-06 10:46 | DCPLANNER ---
district manager postal service had message to schedule an outpatient echo cardiogram and an outpatient stress test for patient. district manager postal service called patient to confirm that patient still wanted to have stress test and echo ordered. Patient stated that he did, and for the results to be sent to Dr. Aceves. district manager postal service faxed order to centralized scheduling, will call for appointment information.
--- NOTE | 2020-01-08 12:57 | DCPLANNER ---
Patient has an out patient stress test and an echo scheduled for Monday, January 22, 2020 at 10;00 for stress test and 12:45 for the echo.
--- NOTE | 2020-01-28 08:11 | DCPLANNER ---
Stress test and echo for patient were cancelled.
== END 2020-01-03 18:38 | disposition home or self-care (01) ==
PROVIDERS: Emergency Provider Emergency Medicine; Family Provider Family Medicine; PCP Family Medicine
DX: R07.9 Chest pain, unspecified (principal); I42.8 Other cardiomyopathies; K21.9 Gastro-esophageal reflux disease without esophagitis; G47.33 Obstructive sleep apnea (adult) (pediatric); F42.8 Other obsessive-compulsive disorder; F43.12 Post-traumatic stress disorder, chronic; Z87.891 Personal history of nicotine dependence; Z79.899 Other long term (current) drug therapy; Z82.49 Family history of ischemic heart disease and other diseases of the circulatory system; Z95.0 Presence of cardiac pacemaker
CPT/HCPCS: 12345; 71045; 80053; 83880; 84484; 85025; 93005; 99282; 99284

== ENCOUNTER → 2020-01-15 08:41 | Outpatient (BNVA) | payer MEDICAID, SELFPAY | PROVIDERS: Family Provider Family Medicine; PCP Family Medicine; Visit Provider Nurse Practitioner | DX: M47.816 Spondylosis without myelopathy or radiculopathy, lumbar region (principal); Z79.891 Long term (current) use of opiate analgesic | CPT/HCPCS: 99213 ==

== ENCOUNTER → 2020-01-24 08:12 | Outpatient (BNVA) | payer MEDICAID, SELFPAY | PROVIDERS: Family Provider Family Medicine; PCP Family Medicine; Visit Provider Nurse Practitioner | DX: F43.12 Post-traumatic stress disorder, chronic (principal); F41.1 Generalized anxiety disorder; F42.8 Other obsessive-compulsive disorder | CPT/HCPCS: 99214 ==

== ENCOUNTER → 2020-04-17 07:43 | Outpatient (BNVA) | payer MEDICAID, SELFPAY | PROVIDERS: Family Provider Family Medicine; PCP Family Medicine; Visit Provider Nurse Practitioner | DX: F43.12 Post-traumatic stress disorder, chronic (principal); F41.1 Generalized anxiety disorder; F42.8 Other obsessive-compulsive disorder | CPT/HCPCS: 99213 ==

== ENCOUNTER → 2020-05-05 08:11 | Outpatient (BNVA) | payer MEDICAID, SELFPAY | PROVIDERS: Family Provider Family Medicine; PCP Family Medicine; Visit Provider Anesthesiology | DX: M47.816 Spondylosis without myelopathy or radiculopathy, lumbar region (principal); M54.9 Dorsalgia, unspecified; M19.90 Unspecified osteoarthritis, unspecified site; Z79.891 Long term (current) use of opiate analgesic | CPT/HCPCS: 99213; 99214 ==

== ENCOUNTER 2020-05-26 07:41 | Outpatient (CLI) | payer MEDICAID, SELFPAY ==
--- NOTE | 2020-05-26 08:00 | USCV_ITS ---
Nguyễn Nieto Age: 45 Gender: M : 1975 Exam Date: 05/26/2020 08:27 Ordering Phys: Isabelle Rush Technologist: Monika Hinkle Exam Location: [facility] – [place] Indication: CARDIOMYOPATHY WITH PACER BP: / HR: 96 Rhythm: Sinus Technical Quality: Adequate MEASUREMENTS (Male / Female) Normal Values 2D ECHO LV Diastolic Diameter PLAX 5.4 cm 4.2 - 5.9 / 3.9 - 5.3 cm LV Systolic Diameter PLAX 4.4 cm LV Chamber Size 3.1 cm IVS Diastolic Thickness 0.8 cm 0.6 - 1.0 / 0.6 - 0.9 cm IVS Systolic Thickness 1.3 cm LVPW Diastolic Thickness 1.1 cm 0.6 - 1.0 / 0.6 - 0.9 cm LVPW Systolic Thickness 1.1 cm RV Chamber Size 2.4 cm LVOT Diameter 2.0 cm LV Ejection Fraction 2D Teich 36.1 % LV Ejection Fraction MOD 2C 31.3 % LV Ejection Fraction 2C AL 34.4 % LA Diameter 4.0 cm LA Width 2.6 cm LA Height 3.9 cm RA Width 2.9 cm RA Height 3.3 cm Aorta at Sinotubular Diameter 3.0 cm M-MODE LV Diastolic Diameter MM 5.3 cm 4.2 - 5.9 / 3.9 - 5.3 cm LV Systolic Diameter MM 3.8 cm LV Ejection Fraction MM Teich 53.8 % IVS Diastolic Thickness MM 1.0 cm 0.6 - 1.0 / 0.6 - 0.9 cm IVS Systolic Thickness MM 1.1 cm LVPW Diastolic Thickness MM 1.1 cm 0.6 - 1.0 / 0.6 - 0.9 cm LVPW Systolic Thickness MM 1.1 cm RV Diastolic Diameter MM 1.2 cm Aortic Annulus Diameter 3.2 cm LA Ao Ratio MM 1.3 MV E Point Septal Separation 1.3 cm DOPPLER AV Peak Velocity 109.0 cm/s LVOT Peak Velocity 59.0 cm/s AV Area Cont Eq vti 1.7 cm squared AV Area Cont Eq pk 1.8 cm squared MV Area PHT 10.5 cm squared Mitral E to A Ratio 0.7 MV E' Velocity 8.0 cm/s Mitral E to MV E' Ratio 6.5 Mitral E to LV E' Lateral Ratio 5.8 Mitral E to LV E' Septal Ratio 7.4 TR Peak Velocity 122.5 cm/s TR Peak Gradient 6.0 mmHg TR Mean Velocity 98.6 cm/s TR Mean Gradient 4.1 mmHg TR Velocity Time Integral 29.6 cm TV Peak E Velocity 53.0 cm/s Right Atrial Pressure 3.0 mmHg Pulmonary Artery Systolic Pressu 9.0 mmHg PV Peak Velocity 73.0 cm/s RV Acceleration Time 0.2 s RV Ejection Time 0.3 s RV AcT/ET 0.5 FINDINGS Left Ventricle Moderately increased left ventricular cavity size. Moderately decreased left ventricular systolic function.left ventricular ejection fraction is estimated at 40 %. Appears to be lateral wall hypokinesis while anterior and septal wall severe hypokinesis.Grade I/IV diastolic dysfunction (abnormal relaxation filling pattern), normal to mildly elevated filling pressures. Right Ventricle The right ventricle is normal in size and function. Right Atrium The right atrium is normal in size. Left Atrium The left atrium is normal in size. Mitral Valve Structurally normal mitral valve without significant stenosis or prolapse. There is no mitral regurgitation. Severe mitral annular calcification. Aortic Valve Structurally normal aortic valve without significant sclerosis or stenosis. There is no aortic regurgitation. Tricuspid Valve Structurally normal tricuspid valve without significant stenosis or regurgitation. Pulmonary artery systolic pressure is normal. Pulmonic Valve Structurally normal pulmonic valve without significant stenosis. There is no pulmonic regurgitation. Pericardium Normal pericardium without effusion. Aorta Normal ascending aorta dimension. CONCLUSIONS 1-Moderately increased left ventricular cavity size. Moderately decreased left ventricular systolic function.left ventricular ejection fraction is estimated at 40 %. Appears to be lateral wall hypokinesis while anterior and septal wall severe hypokinesis.Grade I/IV diastolic dysfunction (abnormal relaxation filling pattern), normal to mildly elevated filling pressures. 2-There is no pericardial effusion. 3-Pulmonary artery systolic pressure is within normal limits. 4-No significant valve abnormalities. 5-No significant change since the prior echocardiogram study of 05/19/2017. Sandro Aceves MD (Electronically Signed) Final Date: 26 May 2020 20:08 S
== END 2020-05-26 07:42 | disposition home or self-care (01) ==
PROVIDERS: Family Provider Family Medicine; PCP Family Medicine; Visit Provider Nurse Practitioner Family
DX: R06.02 Shortness of breath (principal); R53.83 Other fatigue; I42.9 Cardiomyopathy, unspecified; Z95.0 Presence of cardiac pacemaker; I51.81 Takotsubo syndrome
CPT/HCPCS: 93306

== ENCOUNTER 2020-06-16 00:26 | Inpatient (IN) | payer MEDICAID, SELFPAY ==
[2020-06-16] VITALS (7 sets, daily range): BP systolic 109–141; BP diastolic 72–84; PULSE 78–132; RESP 16–20; TEMP 36.8–36.9; O2SAT 93–98; BMI 31.9
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
[2020-06-16 00:55] LABS: Basophils % 0.5 %; Eosinophils # 0.1 10^3/uL (0.0-0.8); Eosinophils % 0.7 %; Hematocrit 42.3 % (42.0-52.0); Hemoglobin 14.1 g/dL (11.7-16.6); Lymphocytes # 1.8 10^3/uL (0.8-4.8); Lymphocytes % 21.5 %; Mean Corpuscular HGB Conc 33.3 g/dL (30.0-36.0); Mean Corpuscular Hemoglobin 29.4 pg (28.0-34.0); Mean Corpuscular Volume 88.1 fL (80-94); Mean Platelet Volume 9.8 fL (7.4-10.4); Monocytes # 0.6 10^3/uL (0.2-0.9); Monocytes % 7.4 %; Neutrophils # 5.73 10^3/uL (1.8-7.7); Neutrophils % 69.7 %; Nucleated Red Blood Cells % 0 %; Platelet Count 272 10^3/cmm (130-400); Red Cell Distribution Width 11.9 % (12.1-15.1); White Blood Count 8.2 10^3/uL (4.0-10.0)
[2020-06-16] MEDS: LORazepam 1 mg Tablet PO (01:05)
[2020-06-16 01:15] LABS: Acetaminophen 5.1 ug/mL (10-30); Alanine Aminotransferase 26 U/L (0-41); Albumin Level 4.2 g/dL (3.5-5.2); Alkaline Phosphatase 98 IU/L (40-130); Anion Gap 17.4 (5-19); Aspartate Amino Transferase 16 U/L (0-40); Blood Urea Nitrogen 11 mg/dL (6-20); Calcium 8.4 mg/dL (8.5-10.5); Carbon Dioxide 21 mmol/L (22-29); Chloride 102 mmol/L (98-107); Glomerular Filtration Rate 81.6 mL/min (90-130); Glucose 167 mg/dL (65-115); Osmolality Calculated 284 mOsm/kg (285-295); Potassium 3.4 mmol/L (3.5-5.1); Sodium 137 mmol/L (136-145); Total Bilirubin 0.3 mg/dL (0.15-1.2); Total Protein 7.2 g/dL (6.6-8.7)
[2020-06-16 01:27] LABS: Alcohol Level < 10 mg/dL (0-10); Salicylate < 0.3 mg/dL (3-10)
[2020-06-16 01:41] LABS: Amphetamines Screen Urine Negative (Negative); Barbiturates Screen Urine Negative (Negative); Benzodiazepines Screen Urine Negative (Negative); Cocaine Screen Urine Negative (Negative); Opiate Screen Urine Negative (Negative); PCP Screen Urine Negative (Negative); THC Screen Urine Negative (Negative)
[2020-06-16] MEDS: hyDROXYzine 25 mg Capsule 50 MG PO ×2 (03:16→20:41)
[2020-06-16] MEDS: nicotine 2 mg Gum BUCCAL ×5 (03:57→20:45)
[2020-06-16 06:53] LABS: Glucose Point of Care 106 mg/dL (70-110)
[2020-06-16] MEDS: metoprolol tartrate 25 mg Tablet 12.5 MG PO ×2 (08:12→16:48)
[2020-06-16] MEDS: FUROsemide 40 mg Tablet PO (08:12)
[2020-06-16] MEDS: potassium chloride ER 10 mEq Tablet PO (08:12)
[2020-06-16] MEDS: cholecalciferol (vitamin D3) 1,000 unit Tablet 2000 UNIT PO (08:12)
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
[2020-06-16 11:51] LABS: Glucose Point of Care 215 mg/dL (70-110)
[2020-06-16 16:44] LABS: Glucose Point of Care 170 mg/dL (70-110)
[2020-06-16 19:56] LABS: Glucose Point of Care 227 mg/dL (70-110)
[2020-06-16] MEDS: CLONazepam 1 mg Tablet PO (20:42)
[2020-06-17] MEDS: nicotine 2 mg Gum BUCCAL ×3 (01:40→10:37)
[2020-06-17] MEDS: acetaminophen 325 mg Tablet 650 MG PO (02:55)
[2020-06-17 06:00] VITALS: BP 104/71; PULSE 140; RESP 16; TEMP 37.1; O2SAT 97
[2020-06-17 07:05] LABS: Glucose Point of Care 94 mg/dL (70-110)
[2020-06-17] MEDS: cholecalciferol (vitamin D3) 1,000 unit Tablet 2000 UNIT PO (08:36)
[2020-06-17] MEDS: potassium chloride ER 10 mEq Tablet PO (08:38)
[2020-06-17] MEDS: CLONazepam 1 mg Tablet PO (08:38)
--- NOTE | 2020-06-17 08:38 | PC.NURSE ---
PRN KLONOPIN KLONOPIN 1MG PO PER PATIENT C/O ANXIETY. WILL CONTINUE TO MONITOR FOR MEDICATION EFFECTIVENESS.
[2020-06-17] MEDS: metoprolol tartrate 25 mg Tablet 12.5 MG PO (08:39)
[2020-06-17] MEDS: FUROsemide 40 mg Tablet PO (08:39)
--- NOTE | 2020-06-17 09:30 | PC.NURSE ---
PRN MIKE FOLLOW UP MEDICATION EFFECTIVE. NO FURTHER C/O ANXIETY. PATIENT IS LYING DOWN RESTING. RESPIRATIONS EVEN AND UNLABORED.
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
[2020-06-17 10:33] VITALS: BP 104/71; PULSE 140; RESP 16; TEMP 37.1; O2SAT 97
--- NOTE | 2020-06-17 10:55 | PC.NURSE ---
Discharge Patient instructed on follow up appointments, and to continue medications. He verbalized understanding. 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 Personal belongings given to patient.
== END 2020-06-17 11:00 | disposition home or self-care (01) | DRG 885 ==
LOC: ER 01:35 → NP 02:03
PROVIDERS: Emergency Medicine; Admitting Provider Psychiatry & Neurology Psychiatry; PCP Family Medicine; Visit Provider Psychiatry & Neurology Psychiatry
DX: F32.2 Major depressive disorder, single episode, severe without psychotic features (principal); R45.851 Suicidal ideations; F41.1 Generalized anxiety disorder; F60.9 Personality disorder, unspecified; F43.12 Post-traumatic stress disorder, chronic; F42.9 Obsessive-compulsive disorder, unspecified; Z87.891 Personal history of nicotine dependence; I10 Essential (primary) hypertension; E11.9 Type 2 diabetes mellitus without complications
CPT/HCPCS: 12345; 36415; 36416; 80053; 80306; 80307; 82962; 85025; 96372; 99284; J1815

== ENCOUNTER 2020-06-18 08:22 | Outpatient (CLI) | payer MEDICAID, SELFPAY ==
[2020-06-18 09:10] VITALS: BMI 34.0
--- NOTE | 2020-06-18 09:11 | NMCV_ITS ---
NM jacquelin perf SPECT r/s* [id number] Nguyễn Nieto Age: 45 Gender: M : 1975 Exam Date: 06/18/2020 10:25 Ordering Phys: Isabelle Rush Technologist: CHOLO Kong Exam Location: [facility] Indications: fatigue, shortness of breath STRESS TEST Please see separate stress test report in [facility] for full findings IMAGE PROTOCOL Rest/Stress 1 Lexiscan Day Radiopharmaceutical Dose (mCi) Administration Site Administered by Rest: Tc-99m 10.7 IV CHOLO Kong Sestamibi Stress:Tc-99m 32.6 IV CHOLO Murphy Sestamibi Rest: 18-Jun-2020 60 Discovery 630 Stress: 18-Jun-2020 30 Discovery 630 0.4mg Lexiscan. Images obtained in supine and prone position. SPECT RESULTS Technical Quality: Excellent Raw Data Analysis: Normal Image Corrections: No attenuation or motion correction applied Summed Stress Score: 0 Summed Rest Score: 3 Summed Difference Score: 0 PERFUSION FINDINGS A small area of slightly decreased tracer uptake was noted in the apical inferior and apical lateral region. No significant reversibility was noted in this region. FUNCTIONAL RESULTS (calculated via Gated SPECT) Stress Image LV EF (%): 51 Stress EDV (mL):113 TID: 0.94 Stress ESV (mL):55 FUNCTIONAL FINDINGS: Mild hypokinesia of the LV apex IMPRESSIONS 1. Myocardial perfusion imaging revealing a small area of slightly decreased persistent tracer uptake in the apical lateral and apical inferior wall regions suggestive of myocardial scarring versus attenuation artifacts. 2. Normal LV ejection fraction 51%. 3. Wall motion normalities as mentioned above. 4. Mildly dilated LV cavity with an end-systolic volume of 55 mL No significant coronary ischemia, based on the above findings Dr Adi Mendez MD FACC (Electronically Signed) Final Date: 18 June 2020 18:43 S
--- NOTE | 2020-06-18 09:11 | ECG_ITS ---
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 Interpretive Statements NAME OF STUDY: LEXISCAN SESTAMIBI STRESS TEST INDICATION: Fatigue; Shortness of Breath NOTE: Please note that this is the electrocardiogram portion of the Lexiscan/Sestamibi stress test. The perfusion scan will be documented separately. DATA: Baseline heart rate was 80 beats per minute. Baseline blood pressure was 104/70 millimeters of mercury. Target heart rate was 177. Maximum heart rate achieved was 114. which was 64 % of the predicted target heart rate. Maximum blood pressure was 120/80 millimeters of mercury. The reason for ending the test was completion of the protocol. The patient did not experience any symptoms. ELECTROCARDIOGRAM: BASELINE: Sinus rhythm. Normal axis. Otherwise, no ST-T changes suggestive of ischemia noted. No arrhythmia noted. EXERCISE: After Lexiscan injection, no ST-T changes suggestive of ischemic noted. No arrhythmia noted. 1. EKG not suggestive of ischemia 2. Lexiscan injection unremarkable. 3. Perfusion scan will be documented separately. Electronically Signed On 07-01-2020 18:59:32 CDT by Sandro Aceves M.D. [id number]
--- NOTE | 2020-06-18 12:30 | SUR.PREOP ---
Patient reports no pain or discomfort prior to the start of the procedure.
[2020-06-18] MEDS: regadenoson 0.4 Mg/5 ml Syringe IVP (12:31)
[2020-06-18 12:43] VITALS: BP 110/67; PULSE 93
== END 2020-06-18 08:23 | disposition home or self-care (01) ==
LOC: CDL 08:25
PROVIDERS: PCP Family Medicine; Visit Provider Nurse Practitioner Family
DX: R06.02 Shortness of breath (principal); R07.9 Chest pain, unspecified; R53.83 Other fatigue
CPT/HCPCS: 78452; 93017; A9500; J2785

== ENCOUNTER → 2020-07-08 08:35 | Outpatient (BNVA) | payer MEDICAID, SELFPAY | PROVIDERS: PCP Family Medicine; Visit Provider Nurse Practitioner | DX: F41.1 Generalized anxiety disorder (principal); F42.8 Other obsessive-compulsive disorder; F43.12 Post-traumatic stress disorder, chronic | CPT/HCPCS: 99213 ==

== ENCOUNTER → 2020-07-14 15:50 | Outpatient (BNVA) | payer MEDICAID, SELFPAY | PROVIDERS: PCP Family Medicine; Visit Provider Nurse Practitioner Family | DX: Z11.59 Encounter for screening for other viral diseases (principal); Z95.810 Presence of automatic (implantable) cardiac defibrillator; I47.1 Supraventricular tachycardia | CPT/HCPCS: 87635 ==

== ENCOUNTER → 2020-08-18 07:34 | Outpatient (BNVA) | payer MEDICAID, SELFPAY | PROVIDERS: PCP Family Medicine; Visit Provider Nurse Practitioner | DX: F43.12 Post-traumatic stress disorder, chronic (principal); F41.1 Generalized anxiety disorder; F42.8 Other obsessive-compulsive disorder | CPT/HCPCS: 99213 ==

== ENCOUNTER → 2020-09-22 11:04 | Outpatient (BNVA) | payer MEDICAID, SELFPAY | PROVIDERS: PCP Family Medicine; Visit Provider Counselor Professional | DX: F43.12 Post-traumatic stress disorder, chronic (principal); F41.1 Generalized anxiety disorder; Z63.0 Problems in relationship with spouse or partner | CPT/HCPCS: 90832 ==

== ENCOUNTER → 2020-10-20 11:08 | Outpatient (BNVA) | payer MEDICAID, SELFPAY | PROVIDERS: PCP Family Medicine; Visit Provider Counselor Professional | DX: F43.12 Post-traumatic stress disorder, chronic (principal); F41.1 Generalized anxiety disorder; Z63.0 Problems in relationship with spouse or partner | CPT/HCPCS: 90832 ==

== ENCOUNTER → 2020-11-10 07:47 | Outpatient (BNVA) | payer MEDICAID, SELFPAY | PROVIDERS: PCP Family Medicine; Visit Provider Nurse Practitioner | DX: F43.12 Post-traumatic stress disorder, chronic (principal); F41.1 Generalized anxiety disorder; F42.8 Other obsessive-compulsive disorder | CPT/HCPCS: 99213 ==

== ENCOUNTER → 2020-11-23 11:06 | Outpatient (BNVA) | payer MEDICAID, SELFPAY | PROVIDERS: PCP Family Medicine; Visit Provider Counselor Professional | DX: F43.12 Post-traumatic stress disorder, chronic (principal); F41.1 Generalized anxiety disorder; Z63.0 Problems in relationship with spouse or partner | CPT/HCPCS: 90832 ==

== ENCOUNTER → 2020-12-21 11:15 | Outpatient (BNVA) | payer MEDICAID, SELFPAY | PROVIDERS: PCP Family Medicine; Visit Provider Counselor Professional | DX: F43.12 Post-traumatic stress disorder, chronic (principal); F41.1 Generalized anxiety disorder; Z63.0 Problems in relationship with spouse or partner | CPT/HCPCS: 90832 ==

== ENCOUNTER → 2020-12-25 09:48 | Outpatient (BNVA) | payer MEDICAID, SELFPAY | PROVIDERS: PCP Family Medicine; Referring Provider Family Medicine; Visit Provider Internal Medicine | DX: E11.40 Type 2 diabetes mellitus with diabetic neuropathy, unspecified (principal); E11.65 Type 2 diabetes mellitus with hyperglycemia; E78.5 Hyperlipidemia, unspecified | CPT/HCPCS: 99204 ==

== ENCOUNTER → 2021-02-01 08:01 | Outpatient (BNVA) | payer MEDICAID, SELFPAY | PROVIDERS: PCP Family Medicine; Visit Provider Nurse Practitioner | DX: F43.12 Post-traumatic stress disorder, chronic (principal); F41.1 Generalized anxiety disorder; F42.8 Other obsessive-compulsive disorder | CPT/HCPCS: 99214 ==

== ENCOUNTER → 2021-02-17 08:17 | Outpatient (BNVA) | payer MEDICAID, SELFPAY | PROVIDERS: PCP Family Medicine; Visit Provider Anesthesiology | DX: M47.816 Spondylosis without myelopathy or radiculopathy, lumbar region (principal); M54.9 Dorsalgia, unspecified; M19.90 Unspecified osteoarthritis, unspecified site; Z79.891 Long term (current) use of opiate analgesic | CPT/HCPCS: 99213 ==

== ENCOUNTER → 2021-03-17 10:47 | Outpatient (BNVA) | payer MEDICAID, SELFPAY | PROVIDERS: PCP Family Medicine; Visit Provider Anesthesiology | DX: M47.816 Spondylosis without myelopathy or radiculopathy, lumbar region (principal); M54.9 Dorsalgia, unspecified; M19.90 Unspecified osteoarthritis, unspecified site; Z79.891 Long term (current) use of opiate analgesic | CPT/HCPCS: 99213 ==

== ENCOUNTER → 2021-04-27 11:07 | Outpatient (BNVA) | payer MEDICAID, SELFPAY | PROVIDERS: PCP Family Medicine; Visit Provider Nurse Practitioner | DX: F43.12 Post-traumatic stress disorder, chronic (principal); F41.1 Generalized anxiety disorder; F42.8 Other obsessive-compulsive disorder | CPT/HCPCS: 99214 ==

== ENCOUNTER → 2021-05-11 08:13 | Outpatient (BNVA) | payer MEDICAID, SELFPAY | PROVIDERS: PCP Family Medicine; Visit Provider Anesthesiology | DX: M47.816 Spondylosis without myelopathy or radiculopathy, lumbar region (principal); M54.9 Dorsalgia, unspecified; M25.561 Pain in right knee; M25.562 Pain in left knee; Z79.891 Long term (current) use of opiate analgesic; Z87.891 Personal history of nicotine dependence | CPT/HCPCS: 99213 ==

== ENCOUNTER → 2021-06-04 12:00 | Outpatient (BNVA) | payer MEDICAID, SELFPAY | PROVIDERS: PCP Family Medicine; Visit Provider Nurse Practitioner Family | DX: R06.02 Shortness of breath (principal); R07.9 Chest pain, unspecified; Z95.810 Presence of automatic (implantable) cardiac defibrillator; I47.1 Supraventricular tachycardia; I42.0 Dilated cardiomyopathy; R42 Dizziness and giddiness | CPT/HCPCS: 80048; 83880 ==

== ENCOUNTER 2021-06-11 07:55 | Outpatient (CLI) | payer MEDICAID, SELFPAY ==
--- NOTE | 2021-06-11 08:09 | CT_ITS ---
WS: [id number] CT scan of the head, with and without IV contrast, 06/11/2021 Clinical Data: SLURRED SPEECH, SYNCOPE Comparison: CT head, 07/15/2014. DLP: 1851.[address] scans at [facility] use at least one of these dose optimization techniques: automat ed exposure control; mA and/or kV adjustment per patient size (includes targeted exams where dose is matched to clinical indication); or iterative reconstruction. Findings: The ventricular system is normal without shift. No recent infarct or hemorrhage is seen. There are no abnormal intracerebral masses. The cerebellum and brainstem are not remarkable. No abnormal contrast enhancement of any structure occurs. There is no evidence of an intracerebral aneurysm. Bony windows of the skull and skull base show no fractures or erosions. The mastoid air cells, internal auditory canals, sella turcica, intraorbital contents, and paranasal sinuses are unremarkable. CT/CT head wo/w con [id number] Impression: Negative CT scan of the head
[2021-06-11] MEDS: iohexol 300 mg/mL 100 mL Btl IV (08:27)
== END 2021-06-11 07:56 | disposition home or self-care (01) ==
PROVIDERS: PCP Family Medicine; Visit Provider Family Medicine
DX: R47.81 Slurred speech (principal); R55 Syncope and collapse
CPT/HCPCS: 70470; Q9967

== ENCOUNTER → 2021-07-08 09:30 | Outpatient (BNVA) | payer MEDICAID, SELFPAY | PROVIDERS: PCP Family Medicine; Visit Provider Nurse Practitioner | DX: M47.816 Spondylosis without myelopathy or radiculopathy, lumbar region (principal); M19.90 Unspecified osteoarthritis, unspecified site; Z95.810 Presence of automatic (implantable) cardiac defibrillator; Z79.891 Long term (current) use of opiate analgesic | CPT/HCPCS: 99214 ==

== ENCOUNTER → 2021-07-22 12:39 | Outpatient (BNVA) | payer MEDICAID, SELFPAY | PROVIDERS: PCP Family Medicine; Visit Provider Nurse Practitioner | DX: F43.12 Post-traumatic stress disorder, chronic (principal); F41.1 Generalized anxiety disorder; F42.8 Other obsessive-compulsive disorder | CPT/HCPCS: 99214 ==

== ENCOUNTER → 2021-08-13 08:55 | Outpatient (BNVA) | payer MEDICAID, SELFPAY | PROVIDERS: PCP Family Medicine; Visit Provider Anesthesiology Pain Medicine | DX: Z01.812 Encounter for preprocedural laboratory examination (principal); E11.9 Type 2 diabetes mellitus without complications; M47.816 Spondylosis without myelopathy or radiculopathy, lumbar region; Z79.891 Long term (current) use of opiate analgesic; Z79.4 Long term (current) use of insulin | CPT/HCPCS: 36416; 64635; 64636; 82962; J1030 ==

== ENCOUNTER → 2021-08-19 13:10 | Outpatient (BNVA) | payer MEDICAID, SELFPAY | PROVIDERS: PCP Family Medicine; Visit Provider Nurse Practitioner | DX: F43.12 Post-traumatic stress disorder, chronic (principal); F41.1 Generalized anxiety disorder; F42.8 Other obsessive-compulsive disorder | CPT/HCPCS: 99214 ==

== ENCOUNTER → 2021-09-09 10:28 | Outpatient (BNVA) | payer MEDICAID, SELFPAY | PROVIDERS: PCP Family Medicine; Visit Provider Anesthesiology | DX: M47.816 Spondylosis without myelopathy or radiculopathy, lumbar region (principal); M25.561 Pain in right knee; M25.562 Pain in left knee; Z79.891 Long term (current) use of opiate analgesic; M19.90 Unspecified osteoarthritis, unspecified site | CPT/HCPCS: 99213 ==

== ENCOUNTER → 2021-09-30 14:22 | Outpatient (BNVA) | payer MEDICAID, SELFPAY | PROVIDERS: PCP Family Medicine; Visit Provider Anesthesiology Pain Medicine | DX: Z01.812 Encounter for preprocedural laboratory examination (principal); E11.9 Type 2 diabetes mellitus without complications; M47.816 Spondylosis without myelopathy or radiculopathy, lumbar region | CPT/HCPCS: 36416; 64635; 64636; 82962; J1030 ==

== ENCOUNTER → 2021-11-04 09:20 | Outpatient (BNVA) | payer MEDICAID, SELFPAY | PROVIDERS: PCP Family Medicine; Visit Provider Anesthesiology | DX: M47.816 Spondylosis without myelopathy or radiculopathy, lumbar region (principal); M19.90 Unspecified osteoarthritis, unspecified site; Z79.891 Long term (current) use of opiate analgesic; Z87.891 Personal history of nicotine dependence | CPT/HCPCS: 99213 ==

== ENCOUNTER → 2021-11-11 11:08 | Outpatient (BNVA) | payer MEDICAID, SELFPAY | PROVIDERS: PCP Family Medicine; Visit Provider Internal Medicine | DX: E11.40 Type 2 diabetes mellitus with diabetic neuropathy, unspecified (principal); E78.49 Other hyperlipidemia; E16.0 Drug-induced hypoglycemia without coma; T38.3X5A Adverse effect of insulin and oral hypoglycemic [antidiabetic] drugs, initial encounter; Z79.4 Long term (current) use of insulin; Z87.891 Personal history of nicotine dependence | CPT/HCPCS: 99214 ==

== ENCOUNTER → 2021-11-18 10:41 | Outpatient (BNVA) | payer MEDICAID, SELFPAY | PROVIDERS: PCP Family Medicine; Visit Provider Nurse Practitioner | DX: F43.12 Post-traumatic stress disorder, chronic (principal); F41.1 Generalized anxiety disorder; F42.8 Other obsessive-compulsive disorder | CPT/HCPCS: 99214 ==

== ENCOUNTER 2022-01-21 18:54 | Emergency (ER) | payer MEDICAID, SELFPAY ==
[2022-01-21 19:17] VITALS: BP 111/78; PULSE 96; RESP 20; O2SAT 97; BMI 32.8
--- NOTE | 2022-01-21 19:32 | ED_ITS ---
Documented by User: TANIYA Marroquin 01/21/22 21:07 HPI - Male Genitourinary General: Chief complaint: Urogenital-Male Stated complaint: Needs help with cath Time Seen by Provider: 01/21/22 19:32 History of Present Illness: 46-year-old male patient comes in today for dysuria. Patient reports for the last couple of weeks he has had post void urgency and dribbling. Patient was seen at Dr. Snyder, primary care physician, office this afternoon and a bladder scan showed that he had urinary retention. Nursing had attempted to start a catheter but was unable to initiate so he was referred to the ER for catheterization. Patient denies any history of prostate problems. Patient does have diabetes mellitus, systolic heart failure, hyperlipidemia, diabetic neuropathy, chronic low back pain, and SVT. Patient denies any fever or significant pain. Patient appears nontoxic. Patient appears in mild to no pain. Associated symptoms: Deny nausea or vomiting Review of Systems General: Reports: 10 or more systems reviewed and unremarkable except in HPI and below Const: Denies: fever(s) Card: Denies: chest pain Resp: Denies: dyspnea GI: Denies: nausea or vomiting : Reports: difficulty urinating PFSH ED PFSH: Medical History Arthritis Cardiomyopathy Chronic GERD DDD (degenerative disc disease), lumbar Encounter for long-term opiate analgesic use Facet arthritis of lumbar region Generalized anxiety disorder Obstructive sleep apnea, adult Opioid contract exists Other obsessive-compulsive disorder Post-traumatic stress disorder, chronic Psychiatric care Spondylosis without myelopathy or radiculopathy, lumbar region Supraventricular tachycardia Systolic heart failure Surgical History Hx of lymph node excision SEVERAL REMOVED FROM LEFT SIDE/ NECK S/P eye surgery LEFT EYE Status post implantation of automatic cardioverter/defibrillator (AICD) Status post placement of cardiac pacemaker Family History Father Myocardial infarct CABG Diabetes CAD (coronary artery disease) Mother Diabetes Hypertension Other Cancer Stroke Denies family history of Anesthesia complication Bleeding disorder Social History Quit status (tobacco): has quit using tobacco Former quit date comment: 11 YEARS AGO Second hand smoke exposure: No Alcohol intake: former History of recent travel: No Current gender identity: Male Physical Exam Const: COMMON NORMALS: alert HENMT: COMMON NORMALS: atraumatic HEAD & SCALP: atraumatic MOUTH: Normal oral and palatal mucosa present THROAT: posterior oropharynx normal Eye: COMMON NORMALS: Equal, round and reactive pupils present and EOMs intact bilaterally PUPIL: Yes Equal, round and reactive pupils present Neck/C-Spine: COMMON NORMALS: full ROM Resp: COMMON NORMALS: normal respiratory effort Cardio: COMMON NORMALS: regular rate and regular rhythm RATE: regular rate RHYTHM: regular rhythm GI: COMMON NORMALS: Soft to palpation AUSCULTATION: Yes normoactive bowel sounds PALPATION: Yes Soft to palpation, No Tenderness to palpation present (GI) and No Guarding due to palpation present (GI) : COMMON NORMALS: Yes no CVA tenderness BLADDER/KIDNEY EXAM: Yes no CVA tenderness Back/Pelvis: COMMON NORMALS: no CVA tenderness Extremity: COMMON NORMALS: no pedal edema Neuro: SENSORIUM/ORIENTATION: Yes alert Psych: COMMON NORMALS: cooperative Course ED course: 2009, bladder scan showed about 215 mL in the bladder. Reviewed with Dr. Cross who recommended no catheterization at this time. We will go ahead and check the urine for infection and then have patient follow-up with urology specialist. Patient was agreeable to this plan. Vital Signs: Vital signs: Vital Signs Pulse Rate 106 H 01/21/22 21:15 Respiratory Rate 18 01/21/22 21:15 Blood Pressure 129/81 01/21/22 21:15 Pulse Oximetry 95 01/21/22 21:15 [facility] - Male Medical Decision Making 46-year-old male patient comes in today for complaints of difficulty urinating. Patient reports that after he voids he has difficulty stopping and continues to dribble afterwards. On exam abdomen soft nontender. No CVA tenderness is no derrick. Skin is warm and dry. Respirations are even lungs are clear to auscultation. Differential diagnosis includes acute urinary retention, renal failure, UTI. Urinalysis was unremarkable. CBC and BMP were unremarkable. Patient may have some benign prostatic hypertrophy. Bladder scan only showed 200 mL of urine in the bladder. After review of this with patient he agreed to a trial of tamsulosin and follow-up with urologist. No need for a urinary Barrios catheter was necessary at this time. I reviewed this with Dr. Cross who agreed to plan. Lab Data : 01/21/22 20:01/21/22: Laboratory Results WBC 8.8 10^3/uL (4.0-10.0) 01/21/22 20: RBC 4.80 10^6/uL (4.1-5.3) 01/21/22 20: Hgb 14.9 g/dL (11.7-16.6) 01/21/22: Hct 42.2 % (42.0-52.0) 01/21/22: MCV 87.9 fl (80-94) 01/21/22: MCH 31.0 pg (28.0-34.0) 01/21/22: MCHC 35.3 g/dL (30.0-36.0) 01/21/22: RDW 11.9 % (12.1-15.1) L 01/21/22: Plt Count 280 10^3/cmm (130-400) 01/21/22: MPV 9.8 fL (7.4-10.4) 01/21/22: Neut % (Auto) 57.5 % 01/21/22: Lymph % (Auto) 30.6 % 01/21/22: [place] % (Auto) 8.3 % 01/21/22: Eos % (Auto) 2.3 % 01/21/22: Baso % (Auto) 0.6 % 01/21/22: Neut # (Auto) 5.08 10^3/uL (1.8-7.7) 01/21/22: Lymph # (Auto) 2.7 10^3/uL (0.8-4.8) 01/21/22: [place] # (Auto) 0.7 10^3/uL (0.2-0.9) 01/21/22: Eos # (Auto) 0.2 10^3/uL (0.0-0.8) 01/21/22 20: Baso # (Auto) 0.1 10^3/uL (0.0-0.1) 01/21/22 20:25 Nucleated RBC % (auto) 0 % 01/21/22 20: Nucleated RBCs # 0.0 /100WBC 01/21/22 20:25 Sodium 133 mmol/L (136-145) L 01/21/22 20: Potassium 3.9 mmol/L (3.5-5.1) 01/21/22 20: Chloride 95 mmol/L (98-107) L 01/21/22: Carbon Dioxide 26 mmol/L (22-29) 01/21/22 20: Anion Gap 15.9 (5-19) 01/21/22 20: BUN 11 mg/dL (6-20) 01/21/22: Creatinine 0.9 mg/dL (0.7-1.2) 01/21/22 20: GFR Calculation 91.7 mL/min (90-130) 01/21/22 20: Glucose 320 mg/dL (65-115) H 01/21/22 20: Calculated Osmolality 288 mOsm/kg (285-295) 01/21/22: Calcium 9.2 mg/dL (8.5-10.5) 01/21/22 20: Urine Color Yellow (Yellow) 01/21/22 20:25 Urine Appearance Clear (CLEAR) 01/21/22 20: Urine pH 5 (5-7) 01/21/22 20:25 Ur Specific Huddy 1.010 (1.005-1.030) 01/21/22 20:25 Urine Protein Neg (Negative) 01/21/22: Urine Glucose (UA) 4+ (Normal) H 01/21/22 20:25 Urine Ketones Negative (Negative) 01/21/22 20:25 Urine Blood Neg (Negative) 01/21/22 20:25 Urine Nitrate Negative (Negative) 01/21/22 20:25 Urine Bilirubin Neg (Negative) 01/21/22 20:25 Urine Urobilinogen Norm mg/dL (Negative) 01/21/22 20:25 Ur Leukocyte Esterase Negative (Negative) 01/21/22 20:25 Discharge Plan Discharge Patient Disposition: Home Clinical Impression: Urinary retention Condition: Stable Prescriptions: New tamsulosin 0.4 mg capsule 0.4 mg PO DAILY Qty: 30 0RF No Action acarbose 25 mg tablet 25 mg PO TID 0RF glyburide 2.5 mg tablet 2.5 mg PO DAILY 0RF selenium sulfide 2.25 % shampoo 5 ml TOPICAL DAILY 0RF triamcinolone acetonide 0.025 % cream 1 applic TOPICAL TID 0RF cholecalciferol (vitamin D3) 50 mcg (2,000 unit) capsule 50 mcg PO DAILY 0RF insulin detemir U-100 100 unit/mL (3 mL) insulin pen 10 unit SUBCUT .hs 0RF Narcan 4 mg/actuation spray,non-aerosol 4 mg intranasal Q2M 30 Days Qty: 1 0RF Rx Instructions: spray 1 dose into ONE nostril; alternate nostrils w each dose until help arrives metoprolol tartrate 25 mg tablet 87.5 mg PO DIRECTED Qty: 315 3RF Rx Instructions: Take 2 tabs (50mg) in AM and 1.5 tabs (37.5mg) in PM nitroglycerin [Nitrostat] 0.4 mg tablet, sublingual 0.4 mg SUBLINGUAL Q5M PRN (Reason: Chest Pain) 90 Days Qty: 25 3RF potassium chloride 10 mEq tablet,ER particles/crystals 30 meq PO DIRECTED Qty: 270 3RF Rx Instructions: Take 20mEq in AM and 10mEq in PM rosuvastatin 20 mg tablet 20 mg PO DAILY Qty: 90 3RF Trintellix 10 mg tablet 10 mg PO DAILY Qty: 30 2RF clonazepam 1 mg tablet 1 mg PO TID PRN (Reason: anxiety) Qty: 90 2RF clomipramine 25 mg capsule 25 mg PO DIRECTED Qty: 120 2RF Rx Instructions: 1 PO AM, 3 PO HS hydrocodone-acetaminophen 7.5-325 mg tablet 1 tab PO BID PRN (Reason: pain) 30 Days Qty: 60 0RF Rx Instructions: ill on or after 11/10/21 hydrocodone-acetaminophen 7.5-325 mg tablet 1 tab PO BID PRN (Reason: pain) 30 Days Qty: 60 0RF Rx Instructions: Fill on or after 12/10/21 furosemide [Lasix] 40 mg tablet 40 mg PO QAM Qty: 90 3RF Discharge Orders: Discharge ED (Routine); Ordered 01/21/22 Ordered By: Yoel Jimenez Referrals: Héctor Snyder MD [Primary Care Provider] - Discharge Diet: Usual diet Discharge Activity: Increase activity as tolerated Patient Instructions: Urinary Retention in Men (ED), Opioid Safety Activity Restrictions/Additional Instructions: Drink plenty of fluids. Medications as directed. Use tamsulosin once daily at bedtime. Follow-up with urologist for further evaluation and treatment. Return to the ER for new concerns or worsening symptoms. Coding Level of Care Code ED Stringed Instrument Repairer for Chg Fwd Exam Comprehensive Documented by User: Valdez Cross DO 01/21/22 23:03 HPI - Male Genitourinary General: Chief complaint: Urogenital-Male Stated complaint: Needs help with cath Time Seen by Provider: 01/21/22 19:32 PFSH ED PFSH: Medical History Arthritis Cardiomyopathy Chronic GERD DDD (degenerative disc disease), lumbar Encounter for long-term opiate analgesic use Facet arthritis of lumbar region Generalized anxiety disorder Obstructive sleep apnea, adult Opioid contract exists Other obsessive-compulsive disorder Post-traumatic stress disorder, chronic Psychiatric care Spondylosis without myelopathy or radiculopathy, lumbar region Supraventricular tachycardia Systolic heart failure Surgical History Hx of lymph node excision SEVERAL REMOVED FROM LEFT SIDE/ NECK S/P eye surgery LEFT EYE Status post implantation of automatic cardioverter/defibrillator (AICD) Status post placement of cardiac pacemaker Family History Father Myocardial infarct CABG Diabetes CAD (coronary artery disease) Mother Diabetes Hypertension Other Cancer Stroke Denies family history of Anesthesia complication Bleeding disorder Social History Quit status (tobacco): has quit using tobacco Former quit date comment: 11 YEARS AGO Second hand smoke exposure: No Alcohol intake: former History of recent travel: No Current gender identity: Male Course Vital Signs: Vital signs: Vital Signs Pulse Rate 106 H 01/21/22 21:15 Respiratory Rate 18 01/21/22 21:15 Blood Pressure 129/81 01/21/22 21:15 Pulse Oximetry 95 01/21/22 21:15 MDM - Male Medical Decision Making 46-year-old male patient comes in today for complaints of difficulty urinating. Patient reports that after he voids he has difficulty stopping and continues to dribble afterwards. On exam abdomen soft nontender. No CVA tenderness is noted. Skin is warm and dry. Respirations are even lungs are clear to auscultation. Differential diagnosis includes acute urinary retention, renal failure, UTI. Urinalysis was unremarkable. CBC and BMP were unremarkable. Patient may have some benign prostatic hypertrophy. Bladder scan only showed 200 mL of urine in the bladder. After review of this with patient he agreed to a trial of tamsulosin and follow-up with urologist. No need for a urinary Barrios catheter was necessary at this time. I reviewed this with Dr. Cross who agreed to plan. This patient was originally seen by TANIYA Bland.? I agree with his history, evaluation, and treatment. Lab Data : 01/21/22 20:25 01/21/22 20:25 Laboratory Results WBC 8.8 10^3/uL (4.0-10.0) 01/21/22 20: RBC 4.80 10^6/uL (4.1-5.3) 01/21/22 20:25 Hgb 14.9 g/dL (11.7-16.6) 01/21/22 20: Hct 42.2 % (42.0-52.0) 01/21/22 20: MCV 87.9 fl (80-94) 01/21/22 20: MCH 31.0 pg (28.0-34.0) 01/21/22 20: MCHC 35.3 g/dL (30.0-36.0) 01/21/22 20: RDW 11.9 % (12.1-15.1) L 01/21/22 20:25 Plt Count 280 10^3/cmm (130-400) 01/21/22 20: MPV 9.8 fL (7.4-10.4) 01/21/22 20:25 Neut % (Auto) 57.5 % 01/21/22 20:25 Lymph % (Auto) 30.6 % 01/21/22 20:25 [place] % (Auto) 8.3 % 01/21/22 20:25 Eos % (Auto) 2.3 % 01/21/22 20:25 Baso % (Auto) 0.6 % 01/21/22 20:25 Neut # (Auto) 5.08 10^3/uL (1.8-7.7) 01/21/22 20: Lymph # (Auto) 2.7 10^3/uL (0.8-4.8) 01/21/22 20:25 [place] # (Auto) 0.7 10^3/uL (0.2-0.9) 01/21/22 20: Eos # (Auto) 0.2 10^3/uL (0.0-0.8) 01/21/22 20: Baso # (Auto) 0.1 10^3/uL (0.0-0.1) 01/21/22 20: Nucleated RBC % (auto) 0 % 01/21/22 20: Nucleated RBCs # 0.0 /100WBC 01/21/22 20:25 Sodium 133 mmol/L (136-145) L 01/21/22 20: Potassium 3.9 mmol/L (3.5-5.1) 01/21/22 20: Chloride 95 mmol/L (98-107) L 01/21/22 20: Carbon Dioxide 26 mmol/L (22-29) 01/21/22 20: Anion Gap 15.9 (5-19) 01/21/22 20:25 BUN 11 mg/dL (6-20) 01/21/22 20:25 Creatinine 0.9 mg/dL (0.7-1.2) 01/21/22 20:25 GFR Calculation 91.7 mL/min (90-130) 01/21/22 20: Glucose 320 mg/dL (65-115) H 01/21/22 20:25 Calculated Osmolality 288 mOsm/kg (285-295) 01/21/22 20:25 Calcium 9.2 mg/dL (8.5-10.5) 01/21/22 20:25 Urine Color Yellow (Yellow) 01/21/22 20:25 Urine Appearance Clear (CLEAR) 01/21/22 20:25 Urine pH 5 (5-7) 01/21/22 20:25 Ur Specific Huddy 1.010 (1.005-1.030) 01/21/22 20:25 Urine Protein Neg (Negative) 01/21/22 20:25 Urine Glucose (UA) 4+ (Normal) H 01/21/22 20:25 Urine Ketones Negative (Negative) 01/21/22 20:25 Urine Blood Neg (Negative) 01/21/22 20:25 Urine Nitrate Negative (Negative) 01/21/22 20:25 Urine Bilirubin Neg (Negative) 01/21/22 20:25 Urine Urobilinogen Norm mg/dL (Negative) 01/21/22 20:25 Ur Leukocyte Esterase Negative (Negative) 01/21/22 20:25 Discharge Plan Discharge Patient Disposition: Home Clinical Impression: Urinary retention Condition: Stable Prescriptions: New tamsulosin 0.4 mg capsule 0.4 mg PO DAILY Qty: 30 0RF No Action acarbose 25 mg tablet 25 mg PO TID 0RF glyburide 2.5 mg tablet 2.5 mg PO DAILY 0RF selenium sulfide 2.25 % shampoo 5 ml TOPICAL DAILY 0RF triamcinolone acetonide 0.025 % cream 1 applic TOPICAL TID 0RF cholecalciferol (vitamin D3) 50 mcg (2,000 unit) capsule 50 mcg PO DAILY 0RF insulin detemir U-100 100 unit/mL (3 mL) insulin pen 10 unit SUBCUT .hs 0RF Narcan 4 mg/actuation spray,non-aerosol 4 mg intranasal Q2M 30 Days Qty: 1 0RF Rx Instructions: spray 1 dose into ONE nostril; alternate nostrils w each dose until help arrives metoprolol tartrate 25 mg tablet 87.5 mg PO DIRECTED Qty: 315 3RF Rx Instructions: Take 2 tabs (50mg) in AM and 1.5 tabs (37.5mg) in PM nitroglycerin [Nitrostat] 0.4 mg tablet, sublingual 0.4 mg SUBLINGUAL Q5M PRN (Reason: Chest Pain) 90 Days Qty: 25 3RF potassium chloride 10 mEq tablet,ER particles/crystals 30 meq PO DIRECTED Qty: 270 3RF Rx Instructions: Take 20mEq in AM and 10mEq in PM rosuvastatin 20 mg tablet 20 mg PO DAILY Qty: 90 3RF Trintellix 10 mg tablet 10 mg PO DAILY Qty: 30 2RF clonazepam 1 mg tablet 1 mg PO TID PRN (Reason: anxiety) Qty: 90 2RF clomipramine 25 mg capsule 25 mg PO DIRECTED Qty: 120 2RF Rx Instructions: 1 PO AM, 3 PO HS hydrocodone-acetaminophen 7.5-325 mg tablet 1 tab PO BID PRN (Reason: pain) 30 Days Qty: 60 0RF Rx Instructions: ill on or after 11/10/21 hydrocodone-acetaminophen 7.5-325 mg tablet 1 tab PO BID PRN (Reason: pain) 30 Days Qty: 60 0RF Rx Instructions: Fill on or after 12/10/21 furosemide [Lasix] 40 mg tablet 40 mg PO QAM Qty: 90 3RF Discharge Orders: Discharge ED (Routine); Ordered 01/21/22 Ordered By: Yoel Jimenez Referrals: Héctor Snyder MD [Primary Care Provider] - Discharge Diet: Usual diet Discharge Activity: Increase activity as tolerated Patient Instructions: Urinary Retention in Men (ED), Opioid Safety Activity Restrictions/Additional Instructions: Drink plenty of fluids. Medications as directed. Use tamsulosin once daily at bedtime. Follow-up with urologist for further evaluation and treatment. Return to the ER for new concerns or worsening symptoms. Coding Level of Care Code ED Stringed Instrument Repairer for Keith Fwd Exam Comprehensive
[2022-01-21 20:00] VITALS: BP 115/84; PULSE 84; RESP 18; O2SAT 95
[2022-01-21 20:42] LABS: Add Urine Microscopic? NO; Charge for UA Resulting for Rev
[2022-01-21 20:48] LABS: Basophils # 0.1 10^3/uL (0.0-0.1); Basophils % 0.6 %; Eosinophils # 0.2 10^3/uL (0.0-0.8); Eosinophils % 2.3 %; Hematocrit 42.2 % (42.0-52.0); Hemoglobin 14.9 g/dL (11.7-16.6); Lymphocytes # 2.7 10^3/uL (0.8-4.8); Lymphocytes % 30.6 %; Mean Corpuscular HGB Conc 35.3 g/dL (30.0-36.0); Mean Corpuscular Volume 87.9 fl (80-94); Mean Platelet Volume 9.8 fL (7.4-10.4); Monocytes # 0.7 10^3/uL (0.2-0.9); Monocytes % 8.3 %; Neutrophils # 5.08 10^3/uL (1.8-7.7); Neutrophils % 57.5 %; Nucleated Red Blood Cells % 0 %; Platelet Count 280 10^3/cmm (130-400); Red Cell Distribution Width 11.9 % (12.1-15.1); White Blood Count 8.8 10^3/uL (4.0-10.0)
[2022-01-21 20:59] LABS: Bilirubin Urine Neg (Negative); Blood Urine Neg (Negative); Glucose Urine UA 4+ (Normal); Ketones Urine Negative (Negative); Leukocyte Esterase Urine Negative (Negative); Nitrate Urine Negative (Negative); Protein Urine Neg (Negative); Urine Appearance Clear (CLEAR); Urine Color Yellow (Yellow); Urobilinogen Urine Norm (Negative); pH Urine 5 (5-7)
[2022-01-21 21:03] LABS: Anion Gap 15.9 (5-19); Blood Urea Nitrogen 11 mg/dL (6-20); Calcium 9.2 mg/dL (8.5-10.5); Carbon Dioxide 26 mmol/L (22-29); Chloride 95 mmol/L (98-107); Glomerular Filtration Rate 91.7 mL/min (90-130); Glucose 320 mg/dL (65-115); Osmolality Calculated 288 mOsm/kg (285-295); Potassium 3.9 mmol/L (3.5-5.1); Sodium 133 mmol/L (136-145)
[2022-01-21 21:05] VITALS: BP 119/83; PULSE 97; RESP 18; O2SAT 92
[2022-01-21] MEDS: tamsulosin 0.4 mg Capsule PO (21:08)
[2022-01-21 21:15] VITALS: BP 129/81; PULSE 106; RESP 18; O2SAT 95
--- NOTE | 2022-01-24 13:12 | DCPLANNER ---
Addendum entered by Miranda Stanton 06/02/22 10:55: Patient had a follow up appointment scheduled with urology - patient did attend appointment. Addendum entered by Miranda Stanton 01/25/22 14:51: Patient has a follow up appointment scheduled for Monday, April 25, 2022 at 4:[address] Sierra. Clinic will call patient with appointment information. Original Note: gift manager had message to schedule a follow up appointment for patient with urology. gift manager sent patients information to the front staff at Dr. Riley office for follow up thru [employer] task/message system. Patients information will be printed and reviewed. Clinic will call patient with appointment information.
== END 2022-01-21 21:15 | disposition home or self-care (01) ==
PROVIDERS: Emergency Provider Nurse Practitioner Family; PCP Family Medicine
DX: R33.9 Retention of urine, unspecified (principal); Z79.4 Long term (current) use of insulin; Z79.84 Long term (current) use of oral hypoglycemic drugs; Z95.0 Presence of cardiac pacemaker; Z87.891 Personal history of nicotine dependence
CPT/HCPCS: 51798; 80048; 81003; 85025; 99283

== ENCOUNTER → 2022-01-31 16:12 | Outpatient (BNVA) | payer MEDICAID, SELFPAY | PROVIDERS: PCP Family Medicine; Visit Provider Urology | DX: R39.9 Unspecified symptoms and signs involving the genitourinary system (principal); N53.14 Retrograde ejaculation | CPT/HCPCS: 81003 ==

== ENCOUNTER → 2022-02-14 14:41 | Outpatient (BNVA) | payer MEDICAID, SELFPAY | PROVIDERS: PCP Family Medicine; Visit Provider Social Worker | DX: F43.12 Post-traumatic stress disorder, chronic (principal); F41.1 Generalized anxiety disorder; F42.8 Other obsessive-compulsive disorder | CPT/HCPCS: 90834 ==

== ENCOUNTER → 2022-02-17 10:58 | Outpatient (BNVA) | payer MEDICAID, SELFPAY | PROVIDERS: PCP Family Medicine; Visit Provider Nurse Practitioner | DX: F41.1 Generalized anxiety disorder (principal); F43.12 Post-traumatic stress disorder, chronic; F42.8 Other obsessive-compulsive disorder | CPT/HCPCS: 99214 ==

== ENCOUNTER → 2022-03-08 11:19 | Outpatient (BNVA) | payer MEDICAID, SELFPAY | PROVIDERS: PCP Family Medicine; Visit Provider Social Worker | DX: F43.12 Post-traumatic stress disorder, chronic (principal); F41.1 Generalized anxiety disorder; F42.8 Other obsessive-compulsive disorder | CPT/HCPCS: 90834 ==

== ENCOUNTER → 2022-03-09 12:45 | Outpatient (BNVA) | payer MEDICAID, SELFPAY | PROVIDERS: PCP Family Medicine; Visit Provider Internal Medicine | DX: I42.0 Dilated cardiomyopathy (principal); E78.49 Other hyperlipidemia; I50.22 Chronic systolic (congestive) heart failure; Z87.891 Personal history of nicotine dependence | CPT/HCPCS: 99214 ==

== ENCOUNTER → 2022-03-24 14:40 | Outpatient (BNVA) | payer MEDICAID, SELFPAY | PROVIDERS: PCP Family Medicine; Visit Provider Internal Medicine | DX: E11.40 Type 2 diabetes mellitus with diabetic neuropathy, unspecified (principal); E78.49 Other hyperlipidemia; E16.0 Drug-induced hypoglycemia without coma; T38.3X5A Adverse effect of insulin and oral hypoglycemic [antidiabetic] drugs, initial encounter; Z79.84 Long term (current) use of oral hypoglycemic drugs; Z79.4 Long term (current) use of insulin; Z87.891 Personal history of nicotine dependence | CPT/HCPCS: 99214 ==

== ENCOUNTER → 2022-04-21 15:04 | Outpatient (BNVA) | payer MEDICAID, SELFPAY | PROVIDERS: PCP Family Medicine; Visit Provider Nurse Practitioner | DX: F41.1 Generalized anxiety disorder (principal); F43.12 Post-traumatic stress disorder, chronic; F42.8 Other obsessive-compulsive disorder | CPT/HCPCS: 99214 ==

== ENCOUNTER → 2022-04-25 15:00 | Outpatient (BNVA) | payer MEDICAID, SELFPAY | PROVIDERS: PCP Family Medicine; Referring Provider Family Medicine; Visit Provider Urology | DX: R33.9 Retention of urine, unspecified (principal) | CPT/HCPCS: 51798; 81003; 99213 ==

== ENCOUNTER → 2022-12-12 12:41 | Outpatient (BNVA) | payer MEDICAID, SELFPAY | PROVIDERS: PCP Family Medicine; Visit Provider Internal Medicine | DX: I42.0 Dilated cardiomyopathy (principal); E78.49 Other hyperlipidemia; I50.22 Chronic systolic (congestive) heart failure; Z87.891 Personal history of nicotine dependence | CPT/HCPCS: 99214 ==

== ENCOUNTER → 2022-12-12 12:41 | Outpatient (BNVA) | payer MEDICAID, SELFPAY | PROVIDERS: PCP Family Medicine; Visit Provider Internal Medicine | DX: I50.20 Unspecified systolic (congestive) heart failure (principal) | CPT/HCPCS: 80048; 83880 ==

== ENCOUNTER → 2022-12-15 08:56 | Outpatient (BNVA) | payer MEDICAID, SELFPAY | PROVIDERS: PCP Family Medicine; Visit Provider Internal Medicine | DX: E11.40 Type 2 diabetes mellitus with diabetic neuropathy, unspecified (principal); E11.649 Type 2 diabetes mellitus with hypoglycemia without coma; E16.0 Drug-induced hypoglycemia without coma; T38.3X5A Adverse effect of insulin and oral hypoglycemic [antidiabetic] drugs, initial encounter; E78.49 Other hyperlipidemia; Z79.84 Long term (current) use of oral hypoglycemic drugs; Z79.4 Long term (current) use of insulin; Z86.31 Personal history of diabetic foot ulcer | CPT/HCPCS: 99214 ==

== ENCOUNTER 2023-01-12 06:41 | Outpatient (CLI) | payer MEDICAID, SELFPAY ==
--- NOTE | 2023-01-12 07:00 | USCV_ITS ---
Nguyễn Nieto Age: 47 Gender: M : 1975 Exam Date: 01/12/2023 07:00 Ordering Phys: Morgan Guillermo M.D ([email or web address]) Technologist: BREEZY Exam Location: [facility] Indication: SHORTNESS OF BREATH, CHEST PAIN BP: 114 / 80 HR: 66 Rhythm: Sinus Technical Quality: Adequate MEASUREMENTS (Male / Female) Normal Values 2D ECHO LVOT Diameter 2.0 cm LV Ejection Fraction MOD 2C 51.4 % LV Ejection Fraction 2C AL 53.7 % LA Diameter 3.7 cm LA Width 2.0 cm LA Height 4.1 cm RA Width 2.7 cm RA Height 4.2 cm Aorta at Sinotubular Diameter 2.5 cm IVC Diameter 1.5 cm M-MODE Aortic Annulus Diameter 3.2 cm LA Ao Ratio MM 1.2 MV E Point Septal Separation 0.8 cm DOPPLER AV Peak Velocity 104.0 cm/s LVOT Peak Velocity 64.0 cm/s AV Area Cont Eq vti 2.2 cm squared AV Area Cont Eq pk 2.0 cm squared MV Peak Velocity 63.0 cm/s MV Area PHT 5.0 cm squared Mitral E to A Ratio 1.1 MV E' Velocity 37.0 cm/s Mitral E to MV E' Ratio 7.1 Mitral E to LV E' Lateral Ratio 7.1 Mitral E to LV E' Septal Ratio 7.1 TR Peak Velocity 169.6 cm/s TR Peak Gradient 11.5 mmHg TR Mean Velocity 137.1 cm/s TR Mean Gradient 8.0 mmHg TR Velocity Time Integral 53.7 cm TV Peak E Velocity 42.0 cm/s Right Atrial Pressure 3.0 mmHg Pulmonary Artery Systolic Pressu 14.5 mmHg PV Peak Velocity 113.0 cm/s RV Acceleration Time 0.2 s RV Ejection Time 0.3 s RV AcT/ET 0.6 FINDINGS Left Ventricle Normal left ventricular size, systolic function and wall thickness, with no regional wall motion abnormalities. Left ventricular ejection fraction is estimated at 60 %. Grade I/IV diastolic dysfunction (abnormal relaxation filling pattern), normal to mildly elevated filling pressures. Right Ventricle The right ventricle is normal in size and function. Right Atrium The right atrium is normal in size. Left Atrium The left atrium is normal in size. Mitral Valve Structurally normal mitral valve without significant stenosis or prolapse. There is no mitral regurgitation. Aortic Valve Structurally normal aortic valve without significant sclerosis or stenosis. There is no aortic regurgitation. Tricuspid Valve Structurally normal tricuspid valve without significant stenosis or regurgitation. Pulmonary artery systolic pressure is normal. Pulmonic Valve Structurally normal pulmonic valve without significant stenosis. There is no pulmonic regurgitation. Pericardium Normal pericardium without effusion. Aorta Normal ascending aorta dimension. IVC The inferior vena cava appears normal. CONCLUSIONS 1-Normal left ventricular size, systolic function and wall thickness, with no regional wall motion abnormalities. Left ventricular ejection fraction is estimated at 60 %. Grade I/IV diastolic dysfunction (abnormal relaxation filling pattern), normal to mildly elevated filling pressures. 2-There is no pericardial effusion. 3-No significant valve abnormalities. 4-Right atrial pressure is around 5 mm of mercury. Sandro Aceves MD (Electronically Signed) Final Date: 12 January 2023 20:24 S
== END 2023-01-12 06:42 | disposition home or self-care (01) ==
LOC: RAD 06:43
PROVIDERS: PCP Family Medicine; Visit Provider Internal Medicine
DX: R06.02 Shortness of breath (principal); R07.9 Chest pain, unspecified
CPT/HCPCS: 80048; 83880; 93306

== ENCOUNTER 2023-03-07 10:16 | Outpatient (CLI) | payer MEDICAID, SELFPAY ==
[2023-03-07 11:17] LABS: Alanine Aminotransferase 35 U/L (0-41); Albumin Level 4.1 g/dL (3.5-5.2); Alkaline Phosphatase 120 U/L (40-130); Aspartate Amino Transferase 21 U/L (0-40); Blood Urea Nitrogen 21 mg/dL (6-20); Calcium 8.2 mg/dL (8.5-10.5); Carbon Dioxide 27 mmol/L (22-29); Chloride 90 mmol/L (98-107); Chol HDL Ratio 3.94 mg/dL (1.0-5.00); Cholesterol 134 mg/dL (0-200); Globulin 2.5 g/dL (1.3-4.6); Glomerular Filtration Rate 72.1 mL/min (90-130); Glucose 265 mg/dL (65-115); HDL Cholesterol 34 mg/dL (60-100); LDL Cholesterol Calculated 67 mg/dL (50-129); LDL HDL Ratio 1.97 RATIO (0.00-3.22); Osmolality Calculated 278 mOsm/kg (285-295); Sodium 128 mmol/L (136-145); Total Bilirubin 0.7 mg/dL (0.15-1.2); Total Protein 6.6 g/dL (6.6-8.7); Triglycerides 163 mg/dL (0-150)
[2023-03-07 11:18] LABS: Anion Gap 15.5 (5-19); Potassium 4.5 mmol/L (3.5-5.1)
[2023-03-07 11:22] LABS: Creatinine Urine, Random 59 mg/dL (39-259); Microalbum Creatinine Ratio Ur 17 mg/dL (0-20); Microalbumin Random Urine 1 ug/dL (0-20)
[2023-03-07 11:55] LABS: Estmated Average Glucose 260; Hemoglobin A1C 10.7 % (4.0-6.0)
== END 2023-03-07 10:17 | disposition home or self-care (01) ==
PROVIDERS: PCP Family Medicine; Visit Provider Internal Medicine
DX: E11.40 Type 2 diabetes mellitus with diabetic neuropathy, unspecified (principal); E78.5 Hyperlipidemia, unspecified; E16.0 Drug-induced hypoglycemia without coma; T38.3X5A Adverse effect of insulin and oral hypoglycemic [antidiabetic] drugs, initial encounter; Y99.9 Unspecified external cause status
CPT/HCPCS: 36415; 80053; 80061; 82044; 83036

== ENCOUNTER 2023-03-09 07:41 | Outpatient (CLI) | payer MEDICAID, SELFPAY ==
[2023-03-09 08:07] VITALS: BMI 31.9
--- NOTE | 2023-03-09 08:07 | ECG_ITS ---
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 Interpretive Statements NAME OF STUDY: LEXISCAN SESTAMIBI STRESS TEST INDICATION: [cp, ] Procedure: At the baseline, the blood pressure was 121/81 mmHg with a heart rate of 72 bpm. The electrocardiogram showed normal sinus rhythm, normal axis with normal ST and T's. The Lexiscan was infused over a period of 20 seconds. A total of 0.4 mg of Lexiscan was infused. The stress phase was continued for a total of 5 minutes. Heart rate was at the end of stress phase was 99 bpm and a blood pressure of 111/69mmHg. The EKG at the peak infusion revealed normal sinus rhythm with no significant ST-T wave changes. Sestamibi was injected 20 seconds after the Lexiscan infusion. Blood pressure at the end of recovery phase was 109/71 mmHg with a heart rate of 101 bpm. Conclusion: 1. Normal EKG response to Lexiscan infusion 2. No Lexiscan induced chest pain or cardiac arrhythmia. 3. Normal blood pressure and heart rate response. 4. Sestamibi/sestamibi perfusion scan pending; see separate report. Electronically Signed On 03-18-2023 21:15:44 CDT by Morgan Guillermo M.D. [email or web address]
--- NOTE | 2023-03-09 08:08 | NMCV_ITS ---
NM jacquelin perf SPECT r/s* [id number] Nguyễn Nieto Age: 48 Gender: M : 1975 Exam Date: 03/09/2023 08:08 Ordering Phys: Morgan Guillermo M.D ([email or web address]) Technologist: CHOLO Kong Exam Location: [facility] Indications: CHEST PAIN, SHORTNESS OF BREATH STRESS TEST Please see separate stress test report in [facility] for full findings IMAGE PROTOCOL Rest/Stress 1 Lexiscan Day Radiopharmaceutical Dose (mCi) Administration Site Administered by Rest: Tc-99m 10.7 IV CHOLO Murphy Sestamibi Stress:Tc-99m 32.9 IV CHOLO Murphy Sestamibi Rest: 09-Mar-2023 60 Discovery 630 Stress: 09-Mar-2023 30 Discovery 630 0.4mg Lexiscan. Images obtained in supine and prone position. SPECT RESULTS Technical Quality: Excellent Raw Data Analysis: Normal Image Corrections: No attenuation or motion correction applied Summed Stress Score: 0 Summed Rest Score: 2 Summed Difference Score: 0 PERFUSION FINDINGS SPECT images demonstrate homogeneous tracer distribution throughout the myocardium. FUNCTIONAL RESULTS (calculated via Gated SPECT) Stress Image LV EF (%): 44 Stress EDV (mL):99 TID: 1.07 Stress ESV (mL):55 FUNCTIONAL FINDINGS: LV systolic function is mildly reduced. IMPRESSIONS 1. Normal myocardial perfusion imaging with no evidence of ischemia 2. LV systolic function is mildly reduced Morgan Guillermo MD (Electronically Signed) Final Date: 09 Mar 2023 12:00 S
[2023-03-09] MEDS: regadenoson 0.4 Mg/5 ml Syringe IVP (09:28)
[2023-03-09 09:39] VITALS: BP 109/71; PULSE 100
== END 2023-03-09 07:42 | disposition home or self-care (01) ==
LOC: CDL 07:41
PROVIDERS: PCP Family Medicine; Visit Provider Internal Medicine
DX: R07.9 Chest pain, unspecified (principal); R06.02 Shortness of breath
CPT/HCPCS: 36415; 78452; 93017; 96374; A9500; J2785

== ENCOUNTER 2023-03-09 10:59 | Emergency (ER) | payer MEDICAID, SELFPAY ==
[2023-03-09 11:04] VITALS: BP 118/74; PULSE 84; RESP 18; TEMP 36.7; O2SAT 99
[2023-03-09 11:33] VITALS: BP 131/92; PULSE 78; RESP 16; O2SAT 93
--- NOTE | 2023-03-09 11:35 | ED_ITS ---
HPI - Recheck/Abnormal Lab/Rx General: Chief Complaint: Recheck/Abnormal Lab/Rx Stated Complaint: low soduim sent from endo Time Seen by Provider: 03/09/23 11:34 History of Present Illness: Mr. Nieto is a 48-year-old gentleman with history of diabetes, hypertension, hyperlipidemia, heart failure/cardiomyopathy presenting to the emergency department for abnormal labs. He had routine labs performed 2 days ago which showed a low sodium. He notes intermittent episodes of dizzy or lightheadedness, denies other significant symptoms or changes in health. He does report that he drinks a fair amount of water. He has otherwise been compliant with his medication regimen. No other specific changes in health, exacerbating, or alleviating factors identified. Initial visit (ago): day(s) Returns today for: called because of abnormal lab/test Symptoms since prior visit: no new symptoms Associated symptoms: other Review of Systems General: Reports: 10 or more systems reviewed and unremarkable except in HPI and below PFSH ED PFSH: Medical History Arthritis Cardiomyopathy Chronic GERD DDD (degenerative disc disease), lumbar Encounter for long-term opiate analgesic use Facet arthritis of lumbar region Generalized anxiety disorder Lower urinary tract symptoms (LUTS) Obstructive sleep apnea, adult Opioid contract exists Other obsessive-compulsive disorder Post-traumatic stress disorder, chronic Psychiatric care Spondylosis without myelopathy or radiculopathy, lumbar region Supraventricular tachycardia Systolic heart failure Surgical History Hx of lymph node excision SEVERAL REMOVED FROM LEFT SIDE/ NECK S/P eye surgery LEFT EYE Status post implantation of automatic cardioverter/defibrillator (AICD) Status post placement of cardiac pacemaker Family History Father Myocardial infarct CABG Diabetes CAD (coronary artery disease) Mother Diabetes Hypertension Other Cancer Stroke Denies family history of Anesthesia complication Bleeding disorder Social History Smoking and tobacco status: former smoker Quit status (tobacco): has quit using tobacco Former quit date comment: 11 Y EARS AGO Second hand smoke exposure: No Alcohol intake: never Substance/Drug Use: never Marital status: Current occupational status: disabled Current gender identity: Male Physical Exam Const: COMMON NORMALS: alert GENERAL APPEARANCE: cooperative and well developed HENMT: COMMON NORMALS: normocephalic and atraumatic HEAD & SCALP: normocephalic and atraumatic Eye: COMMON NORMALS: conjunctivae normal CONJUNCTIVA: Yes conjunctivae normal SCLERA: sclerae normal Neck/C-Spine: COMMON NORMALS: supple GENERAL: Yes trachea midline Resp: COMMON NORMALS: clear to auscultation bilaterally EFFORT & INSPECTION: Yes able to speak in complete sentences AUSCULTATION: clear to auscultation bilaterally Cardio: COMMON NORMALS: regular rate and regular rhythm RATE: regular rate RHYTHM: regular rhythm GI: COMMON NORMALS: Soft to palpation PALPATION: Yes Soft to palpation and No Tenderness to palpation present (GI) Extremity: GENERAL: Yes normal exam except as noted and No edema Neuro: COMMON NORMALS: moves all extremities SENSORIUM/ORIENTATION: Yes alert and No Orientation impaired Psych: COMMON NORMALS: mental status grossly normal and Normal thought process present THOUGHT PROCESS: Normal thought process present Course Vital Signs: Vital signs: Vital Signs Temperature 98.0 F 03/09/23 11:04 Pulse Rate 73 03/09/23 12:52 Respiratory Rate 16 03/09/23 12:52 Blood Pressure 116/86 03/09/23 12:52 Pulse Oximetry 97 03/09/23 12:52 Oxygen Delivery Me thod Room Air 03/09/23 12:31 MDM - Recheck/Abnormal Lab/Rx Medical Decision Making 48-year-old gentleman presenting for abnormal labs, prior sodium 128. Patient describes mild symptoms which may or may not be related including some lightheadedness at times. No focal neurologic deficits and he is nontoxic on exam. EKG demonstrates sinus rhythm with nonspecific ST segment abnormalities, no STEMI. Unremarkable hematologic panel. Repeat sodium is improved 133, no evidence of DKA. Recent stress test performed and results pending. No indication for imaging. Appropriate for outpatient follow-up and further assessment/management. I will message case management for cardiology follow-up. The results of ED evaluation were discussed with the patient including prescriptions and/or symptomatic cares (if applicable) including appropriate and responsible use, followup plan, and return precautions. The patient verbalized understanding and felt safe for discharge. Medical Records I reviewed the patient's medical records. Lab Data I reviewed the patient's lab results. 03/09/23 11:31 03/09/23 11:31 Laboratory Results WBC 8.4 10^3/uL (4.0-10.0) 03/09/23 11: RBC 4.95 10^6/uL (4.1-5.3) 03/09/23 11: Hgb 14.6 g/dL (11.7-16.6) 03/09/23 11: Hct 43.9 % (42.0-52.0) 03/09/23 11: MCV 88.7 fl (80-94) 03/09/23 11: MCH 29.5 pg (28.0-34.0) 03/09/23 11: MCHC 33.3 g/dL (30.0-36.0) 03/09/23 11: RDW 11.8 % (12.1-15.1) L 03/09/23 11: Plt Count 255 10^3/cmm (130-400) 03/09/23 11: MPV 10.2 fL (7.4-10.4) 03/09/23 11:31 Neut % (Auto) 58.4 % 03/09/23 11: Lymph % (Auto) 30.0 % 03/09/23 11: [place] % (Auto) 8.5 % 03/09/23 11: Eos % (Auto) 1.9 % 03/09/23 11: Baso % (Auto) 0.6 % 03/09/23 11: Neut # (Auto) 4.88 10^3/uL (1.8-7.7) 03/09/23 11: Lymph # (Auto) 2.5 10^3/uL (0.8-4.8) 03/09/23 11: [place] # (Auto) 0.7 10^3/uL (0.2-0.9) 03/09/23 11: Eos # (Auto) 0.2 10^3/uL (0.0-0.8) 03/09/23 11: Baso # (Auto) 0.1 10^3/uL (0.0-0.1) 03/09/23 11:31 Nucleated RBC % (auto) 0 % 03/09/23 11:31 Nucleated RBCs # 0.0 /100WBC 03/09/23 11:31 Sodium 133 mmol/L (136-145) L 03/09/23 11:31 Potassium 3.7 mmol/L (3.5-5.1) 03/09/23 11:31 Chloride 96 mmol/L (98-107) L 03/09/23 11:31 Carbon Dioxide 28 mmol/L (22-29) 03/09/23 11:31 Anion Gap 12.7 (5-19) 03/09/23 11:31 BUN 15 mg/dL (6-20) 03/09/23 11:31 Creatinine 0.9 mg/dL (0.7-1.2) 03/09/23 11:31 GFR Calculation 90.8 mL/min (90-130) 03/09/23 11:31 Glucose 200 mg/dL (65-115) H 03/09/23 11:31 Calculated Osmolality 282 mOsm/kg (285-295) L 03/09/23 11:31 Calcium 8.7 mg/dL (8.5-10.5) 03/09/23 11:31 Discharge Plan Discharge Patient Disposition: Home Clinical Impression: Hyponatremia Condition: Stable Prescriptions: No Action selenium sulfide 2.25 % shampoo 5 ml TOPICAL DAILY triamcinolone acetonide 0.025 % cream 1 applic TOPICAL TID cholecalciferol (vitamin D3) 50 mcg (2,000 unit) capsule 50 mcg PO DAILY rosuvastatin 20 mg tablet 20 mg PO DAILY Qty: 90 3RF vortioxetine 20 mg tablet 20 mg PO DAILY Qty: 30 2RF clonazepam 1 mg tablet 1 mg PO TID PRN (Reason: anxiety) Qty: 90 2RF nitroglycerin [Nitrostat] 0.4 mg tablet, sublingual 0.4 mg SUBLINGUAL Q5M PRN (Reason: Chest Pain) Qty: 25 3RF potassium chloride 10 mEq tablet,ER particles/crystals 30 meq PO DIRECTED Qty: 270 3RF Rx Instructions: Take 20mEq in AM and 10mEq in PM furosemide [Lasix] 40 mg tablet 40 mg PO QAM Qty: 90 3RF acarbose 25 mg tablet 25 mg PO TID 90 Days Qty: 270 2RF Rx Instructions: 25mg Three times daily clomipramine 25 mg capsule 25 mg PO DIRECTED Qty: 120 2RF Rx Instructions: 1 PO AM, 3 PO HS tamsulosin 0.4 mg capsule 0.4 mg PO DAILY Qty: 30 0RF metoprolol tartrate 25 mg tablet See Rx Instructions .ROUTE .COMPLEX Rx Instructions: Take 2 tabs (50mg) in AM and 1.5 tabs (37.5mg) in PM Levemir FlexPen 100 unit/mL (3 mL) insulin pen 18 unit SUBCUT DAILY Narcan 4 mg/actuation spray,non-aerosol 4 mg intranasal Q2M PRN (Reason: overdose) Rx Instructions: spray 1 dose into ONE nostril; alternate nostrils w each dose until help arrives Discharge Orders: Discharge ED (Routine); Ordered 03/09/23 Ordered By: Simeon Savage Referrals: Héctor Snyder MD [Primary Care Provider] - Discharge Diet: Usual diet Discharge Activity: Resume usual activity Patient Instructions: Hyponatremia (ED) Activity Restrictions/Additional Instructions: Thank you for visiting the emergency department. You were seen and evaluated for abnormal lab. Your sodium on repeat labs today has improved from 128 to 133. Please continue your medication regimen. Please follow-up with your primary care provider. I will message case management for follow-up with cardiology. Return to the emergency department for confusion, fainting, chest pain, sh ortness of breath, or anything else that you are concerned about and feel needs emergency department evaluation. Coding Level of Care Code ED Crystal Mounter for Keith Robertson
--- NOTE | 2023-03-09 11:52 | ECG_ITS ---
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 Measurements Intervals [place] Rate: 83 P: 12 W[place]: 161 QRS: -5 QRSD: 94 T: 50 QT: 393 QTc: 464 Interpretive Statements SINUS RHYTHM NONSPECIFIC T-WAVE ABNORMALITY Compared to ECG 01/03/2020 17:58:14 No significant changes Electronically Signed On 03-09-2023 14:03:02 CDT by Umesh Kimbrough M.D. [email or web address] medical surgical hospitalJangl SMSdayton va medical centerTrace [email or web address] SA/[id number]
[2023-03-09 11:58] LABS: Basophils # 0.1 10^3/uL (0.0-0.1); Basophils % 0.6 %; Eosinophils # 0.2 10^3/uL (0.0-0.8); Eosinophils % 1.9 %; Hematocrit 43.9 % (42.0-52.0); Hemoglobin 14.6 g/dL (11.7-16.6); Lymphocytes # 2.5 10^3/uL (0.8-4.8); Mean Corpuscular HGB Conc 33.3 g/dL (30.0-36.0); Mean Corpuscular Hemoglobin 29.5 pg (28.0-34.0); Mean Corpuscular Volume 88.7 fl (80-94); Mean Platelet Volume 10.2 fL (7.4-10.4); Monocytes # 0.7 10^3/uL (0.2-0.9); Monocytes % 8.5 %; Neutrophils # 4.88 10^3/uL (1.8-7.7); Neutrophils % 58.4 %; Nucleated Red Blood Cells % 0 %; Platelet Count 255 10^3/cmm (130-400); Red Blood Count 4.95 10^6/uL (4.1-5.3); Red Cell Distribution Width 11.8 % (12.1-15.1); White Blood Count 8.4 10^3/uL (4.0-10.0)
[2023-03-09 12:24] LABS: Anion Gap 12.7 (5-19); Blood Urea Nitrogen 15 mg/dL (6-20); Calcium 8.7 mg/dL (8.5-10.5); Carbon Dioxide 28 mmol/L (22-29); Chloride 96 mmol/L (98-107); Glomerular Filtration Rate 90.8 mL/min (90-130); Glucose 200 mg/dL (65-115); Osmolality Calculated 282 mOsm/kg (285-295); Potassium 3.7 mmol/L (3.5-5.1); Sodium 133 mmol/L (136-145)
[2023-03-09 12:31] VITALS: BP 117/77; PULSE 79; RESP 15; O2SAT 95
[2023-03-09 12:52] VITALS: BP 116/86; PULSE 73; RESP 16; O2SAT 97
--- NOTE | 2023-03-09 14:29 | DCPLANNER ---
Addendum entered by Miranda Stanton 03/30/23 08:55: Patient had a follow up appointment scheduled with heart care - patient did attend appointment Addendum entered by Miranda Stanton 03/15/23 11:12: Patient has a follow up appointment scheduled for Monday, march 29, 2023 at 11:00 with [facility] at [facility]. Original Note: manager compensation had message to schedule a follow up appointment for patient with cardiology. manager compensation sent patients information to the front office staff at [facility]. Patients information will be printed and reviewed. Clinic will call patient with appointment information.
== END 2023-03-09 12:53 | disposition home or self-care (01) ==
PROVIDERS: Emergency Provider Emergency Medicine; PCP Family Medicine
DX: E87.1 Hypo-osmolality and hyponatremia (principal); Z79.4 Long term (current) use of insulin; Z87.891 Personal history of nicotine dependence; Z95.0 Presence of cardiac pacemaker; I11.0 Hypertensive heart disease with heart failure; I50.9 Heart failure, unspecified; E11.9 Type 2 diabetes mellitus without complications; E78.5 Hyperlipidemia, unspecified
CPT/HCPCS: 80048; 85025; 93005; 99284

== ENCOUNTER → 2023-03-13 08:42 | Outpatient (BNVA) | payer MEDICAID, SELFPAY | PROVIDERS: PCP Family Medicine; Visit Provider Internal Medicine | DX: E11.40 Type 2 diabetes mellitus with diabetic neuropathy, unspecified (principal); E11.649 Type 2 diabetes mellitus with hypoglycemia without coma; E78.49 Other hyperlipidemia; E16.0 Drug-induced hypoglycemia without coma; T38.3X5A Adverse effect of insulin and oral hypoglycemic [antidiabetic] drugs, initial encounter; Z79.4 Long term (current) use of insulin; X58.XXXA Exposure to other specified factors, initial encounter | CPT/HCPCS: 99214 ==

== ENCOUNTER → 2023-03-29 10:42 | Outpatient (BNVA) | payer MEDICAID, SELFPAY | PROVIDERS: PCP Family Medicine; Visit Provider Nurse Practitioner Family | DX: I42.0 Dilated cardiomyopathy (principal); Z95.810 Presence of automatic (implantable) cardiac defibrillator; Z87.891 Personal history of nicotine dependence | CPT/HCPCS: 99214 ==

== ENCOUNTER → 2023-06-12 13:45 | Outpatient (BNVA) | payer MEDICAID, SELFPAY | PROVIDERS: PCP Family Medicine; Visit Provider Internal Medicine | DX: I42.0 Dilated cardiomyopathy (principal); E78.49 Other hyperlipidemia; I50.22 Chronic systolic (congestive) heart failure; Z87.891 Personal history of nicotine dependence | CPT/HCPCS: 99214 ==

== ENCOUNTER 2023-06-15 07:28 | Outpatient (CLI) | payer MEDICAID, SELFPAY ==
[2023-06-15 08:09] LABS: Alanine Aminotransferase 33 U/L (0-41); Albumin Level 4.2 g/dL (3.5-5.2); Alkaline Phosphatase 142 U/L (40-130); Anion Gap 16.2 (5-19); Aspartate Amino Transferase 19 U/L (0-40); Blood Urea Nitrogen 11 mg/dL (6-20); Calcium 8.9 mg/dL (8.5-10.5); Carbon Dioxide 24 mmol/L (22-29); Chloride 101 mmol/L (98-107); Chol HDL Ratio 4.64 mg/dL (1.0-5.00); Cholesterol 167 mg/dL (0-200); Globulin 3.1 g/dL (1.3-4.6); Glomerular Filtration Rate 90.8 mL/min (90-130); Glucose 184 mg/dL (65-115); HDL Cholesterol 36 mg/dL (60-100); LDL Cholesterol Calculated 104 mg/dL (50-129); LDL HDL Ratio 2.89 RATIO (0.00-3.22); Osmolality Calculated 288 mOsm/kg (285-295); Potassium 4.2 mmol/L (3.5-5.1); Sodium 137 mmol/L (136-145); Total Bilirubin 0.4 mg/dL (0.15-1.2); Total Protein 7.3 g/dL (6.6-8.7); Triglycerides 137 mg/dL (0-150)
[2023-06-15 08:19] LABS: Creatinine Urine, Random 107 mg/dL (39-259); Microalbum Creatinine Ratio Ur 9 mg/dL (0-20); Microalbumin Random Urine 1 ug/dL (0-20)
[2023-06-15 08:23] LABS: Estmated Average Glucose 278; Hemoglobin A1C 11.3 % (4.0-6.0)
== END 2023-06-15 07:29 | disposition home or self-care (01) ==
LOC: LAB 07:29
PROVIDERS: PCP Family Medicine; Visit Provider Internal Medicine
DX: E11.9 Type 2 diabetes mellitus without complications (principal); E78.5 Hyperlipidemia, unspecified
CPT/HCPCS: 36415; 80053; 80061; 82044; 83036

== ENCOUNTER → 2023-06-21 09:04 | Outpatient (BNVA) | payer MEDICAID, SELFPAY | PROVIDERS: PCP Family Medicine; Visit Provider Internal Medicine | DX: E11.40 Type 2 diabetes mellitus with diabetic neuropathy, unspecified (principal); E78.49 Other hyperlipidemia; E16.0 Drug-induced hypoglycemia without coma; T38.3X5A Adverse effect of insulin and oral hypoglycemic [antidiabetic] drugs, initial encounter; E11.649 Type 2 diabetes mellitus with hypoglycemia without coma; Z79.4 Long term (current) use of insulin; X58.XXXA Exposure to other specified factors, initial encounter | CPT/HCPCS: 99214 ==

== ENCOUNTER 2023-10-13 07:40 | Outpatient (CLI) | payer MEDICAID, SELFPAY ==
[2023-10-13 08:22] LABS: Alanine Aminotransferase 27 U/L (0-41); Albumin Level 4.2 g/dL (3.5-5.2); Alkaline Phosphatase 123 U/L (40-130); Anion Gap 12.8 (5-19); Aspartate Amino Transferase 18 U/L (0-40); Blood Urea Nitrogen 14 mg/dL (6-20); Calcium 8.7 mg/dL (8.5-10.5); Carbon Dioxide 28 mmol/L (22-29); Chloride 99 mmol/L (98-107); Chol HDL Ratio 3.14 mg/dL (1.0-5.00); Cholesterol 138 mg/dL (0-200); Globulin 3.1 g/dL (1.3-4.6); Glomerular Filtration Rate 72.1 mL/min (90-130); Glucose 201 mg/dL (65-115); HDL Cholesterol 44 mg/dL (60-100); LDL Cholesterol Calculated 62 mg/dL (50-129); LDL HDL Ratio 1.41 RATIO (0.00-3.22); Osmolality Calculated 288 mOsm/kg (285-295); Potassium 3.8 mmol/L (3.5-5.1); Sodium 136 mmol/L (136-145); Total Bilirubin 0.4 mg/dL (0.15-1.2); Total Protein 7.3 g/dL (6.6-8.7); Triglycerides 159 mg/dL (0-150)
[2023-10-13 08:26] LABS: Creatinine Urine, Random 110 mg/dL (39-259); Microalbum Creatinine Ratio Ur 9 mg/dL (0-20); Microalbumin Random Urine 1 ug/dL (0-20)
[2023-10-13 08:31] LABS: Estmated Average Glucose 189; Hemoglobin A1C 8.2 % (4.0-6.0)
== END 2023-10-13 07:41 | disposition home or self-care (01) ==
LOC: LAB 07:41
PROVIDERS: PCP Family Medicine; Visit Provider Internal Medicine
DX: E16.0 Drug-induced hypoglycemia without coma (principal); T38.3X5A Adverse effect of insulin and oral hypoglycemic [antidiabetic] drugs, initial encounter; E78.5 Hyperlipidemia, unspecified; E11.40 Type 2 diabetes mellitus with diabetic neuropathy, unspecified
CPT/HCPCS: 36415; 80053; 80061; 82044; 83036

== ENCOUNTER → 2023-10-16 08:35 | Outpatient (BNVA) | payer MEDICAID, SELFPAY | PROVIDERS: PCP Family Medicine; Visit Provider Internal Medicine | DX: E11.40 Type 2 diabetes mellitus with diabetic neuropathy, unspecified; E78.49 Other hyperlipidemia; E16.0 Drug-induced hypoglycemia without coma; T38.3X5A Adverse effect of insulin and oral hypoglycemic [antidiabetic] drugs, initial encounter; E11.649 Type 2 diabetes mellitus with hypoglycemia without coma; X58.XXXA Exposure to other specified factors, initial encounter; Z79.4 Long term (current) use of insulin | CPT/HCPCS: 99214 ==

== ENCOUNTER → 2023-12-18 15:10 | Outpatient (BNVA) | payer MEDICAID, SELFPAY ==
[2023-10-26 14:44] VITALS: BP 121/80; BMI 34.8
== END ==
PROVIDERS: PCP Family Medicine; Visit Provider Internal Medicine
DX: I42.0 Dilated cardiomyopathy (principal); E78.49 Other hyperlipidemia; I50.22 Chronic systolic (congestive) heart failure; Z87.891 Personal history of nicotine dependence
CPT/HCPCS: 99214

== ENCOUNTER 2024-01-08 06:00 | Outpatient (CLI) | payer MEDICAID, SELFPAY ==
[2023-10-26 14:44] VITALS: BP 121/80; BMI 34.8
[2024-01-08 07:11] LABS: Alanine Aminotransferase 28 U/L (0-41); Alkaline Phosphatase 118 U/L (40-130); Anion Gap 14.3 (5-19); Aspartate Amino Transferase 19 U/L (0-40); Blood Urea Nitrogen 14 mg/dL (6-20); Calcium 8.8 mg/dL (8.5-10.5); Carbon Dioxide 25 mmol/L (22-29); Chloride 105 mmol/L (98-107); Chol HDL Ratio 3.58 mg/dL (1.0-5.00); Cholesterol 154 mg/dL (0-200); Globulin 3.1 g/dL (1.3-4.6); Glomerular Filtration Rate 80.4 mL/min (90-130); Glucose 142 mg/dL (65-115); HDL Cholesterol 43 mg/dL (60-100); LDL Cholesterol Calculated 94 mg/dL (50-129); LDL HDL Ratio 2.19 RATIO (0.00-3.22); Osmolality Calculated 293 mOsm/kg (285-295); Potassium 4.3 mmol/L (3.5-5.1); Sodium 140 mmol/L (136-145); Total Bilirubin 0.3 mg/dL (0.15-1.2); Total Protein 7.1 g/dL (6.6-8.7); Triglycerides 85 mg/dL (0-150)
[2024-01-08 07:12] LABS: Creatinine Urine, Random 99 mg/dL (39-259); Microalbum Creatinine Ratio Ur 10 mg/dL (0-20); Microalbumin Random Urine 1 ug/dL (0-20)
[2024-01-08 08:26] LABS: Estmated Average Glucose 186; Hemoglobin A1C 8.1 % (4.0-6.0)
== END 2024-01-08 06:01 | disposition home or self-care (01) ==
PROVIDERS: PCP Family Medicine; Visit Provider Internal Medicine
DX: E11.40 Type 2 diabetes mellitus with diabetic neuropathy, unspecified (principal); E78.5 Hyperlipidemia, unspecified
CPT/HCPCS: 36415; 80053; 80061; 82044; 83036

== ENCOUNTER → 2024-01-15 08:48 | Outpatient (BNVA) | payer MEDICAID, SELFPAY ==
[2023-10-26 14:44] VITALS: BP 121/80; BMI 34.8
== END ==
PROVIDERS: PCP Family Medicine; Visit Provider Internal Medicine
DX: E78.49 Other hyperlipidemia; E16.0 Drug-induced hypoglycemia without coma; T38.3X5A Adverse effect of insulin and oral hypoglycemic [antidiabetic] drugs, initial encounter; E11.40 Type 2 diabetes mellitus with diabetic neuropathy, unspecified; X58.XXXA Exposure to other specified factors, initial encounter; E11.649 Type 2 diabetes mellitus with hypoglycemia without coma; Z79.4 Long term (current) use of insulin
CPT/HCPCS: 99214

== ENCOUNTER 2024-04-09 07:39 | Outpatient (CLI) | payer MEDICAID, SELFPAY ==
[2023-10-26 14:44] VITALS: BP 121/80; BMI 34.8
[2024-04-09 08:27] LABS: Estmated Average Glucose 206; Hemoglobin A1C 8.8 % (4.0-6.0)
[2024-04-09 08:30] LABS: Alanine Aminotransferase 24 U/L (0-41); Albumin Level 4.1 g/dL (3.5-5.2); Alkaline Phosphatase 134 U/L (40-130); Anion Gap 14.8 (5-19); Aspartate Amino Transferase 16 U/L (0-40); Blood Urea Nitrogen 11 mg/dL (6-20); Calcium 8.9 mg/dL (8.5-10.5); Carbon Dioxide 29 mmol/L (22-29); Chloride 102 mmol/L (98-107); Chol HDL Ratio 2.85 mg/dL (1.0-5.00); Cholesterol 117 mg/dL (0-200); Glomerular Filtration Rate 80.1 mL/min (90-130); Glucose 160 mg/dL (65-115); HDL Cholesterol 41 mg/dL (60-100); LDL Cholesterol Calculated 55 mg/dL (50-129); LDL HDL Ratio 1.34 RATIO (0.00-3.22); Osmolality Calculated 297 mOsm/kg (285-295); Potassium 3.8 mmol/L (3.5-5.1); Sodium 142 mmol/L (136-145); Total Bilirubin 0.3 mg/dL (0.15-1.2); Total Protein 7.1 g/dL (6.6-8.7); Triglycerides 106 mg/dL (0-150)
[2024-04-09 08:37] LABS: Creatinine Urine, Random 82 mg/dL (39-259); Microalbum Creatinine Ratio Ur 12 mg/dL (0-20); Microalbumin Random Urine 1 ug/dL (0-20)
== END 2024-04-09 07:40 | disposition home or self-care (01) ==
LOC: LAB 07:41
PROVIDERS: PCP Family Medicine; Visit Provider Internal Medicine
DX: E11.9 Type 2 diabetes mellitus without complications (principal); E78.49 Other hyperlipidemia; E16.0 Drug-induced hypoglycemia without coma; T38.3X5A Adverse effect of insulin and oral hypoglycemic [antidiabetic] drugs, initial encounter
CPT/HCPCS: 36415; 80053; 80061; 82044; 83036

== ENCOUNTER → 2024-04-12 09:35 | Outpatient (BNVA) | payer MEDICAID, SELFPAY ==
[2024-04-10 10:46] VITALS: BP 110/72; BMI 34.6
== END ==
PROVIDERS: PCP Family Medicine; Visit Provider Internal Medicine
DX: E11.40 Type 2 diabetes mellitus with diabetic neuropathy, unspecified (principal); E78.49 Other hyperlipidemia; E16.0 Drug-induced hypoglycemia without coma; T38.3X5A Adverse effect of insulin and oral hypoglycemic [antidiabetic] drugs, initial encounter; E11.649 Type 2 diabetes mellitus with hypoglycemia without coma; X58.XXXA Exposure to other specified factors, initial encounter; Z79.4 Long term (current) use of insulin
CPT/HCPCS: 99214

== ENCOUNTER 2024-09-16 16:20 | Emergency (ER) | payer MEDICAID, SELFPAY ==
[2024-04-10 10:46] VITALS: BP 110/72; BMI 34.6
--- NOTE | 2024-09-16 16:28 | XRR_ITS ---
PROCEDURE INFORMATION: Exam: XR Chest Exam date and time: 09/16/2024 5:49 PM Age: 49 years old Clinical indication: Other: Dizzy; Prior surgery; Surgery date: 6+ months; Surgery type: Pacer TECHNIQUE: Imaging protocol: Radiologic exam of the chest. Views: 1 view. COMPARISON: CR XR chest 1V portable [id number] 01/03/2020 4:15 PM FINDINGS: Tubes, catheters and devices: AICD/pacer device noted in the left chest wall. Lungs: Unremarkable. No consolidation. Pleural spaces: Unremarkable. No pleural effusion. No pneumothorax. Heart/Mediastinum: Unremarkable. No cardiomegaly. Bones/joints: Unremarkable. XR/XR chest 1V portable [id number] IMPRESSION: No acute findings.
--- NOTE | 2024-09-16 16:28 | ECG_ITS ---
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 Measurements Intervals [place] Rate: 75 P: 45 [place]: 159 QRS: -8 QRSD: 88 T: 58 QT: 396 QTc: 444 Interpretive Statements SINUS RHYTHM Compared to ECG 03/09/2023 11:52:32 T-wave abnormality no longer present Electronically Signed On 09-16-2024 19:20:06 JIGGER ARTISAN by Adi Mendez M.D. [id number]
[2024-09-16 16:29] VITALS: BP 122/81; PULSE 97; RESP 18; TEMP 36.4; O2SAT 100; BMI 31.8
[2024-09-16 17:11] LABS: Basophils # 0.1 10^3/uL (0.0-0.1); Basophils % 0.9 %; Eosinophils # 0.1 10^3/uL (0.0-0.8); Eosinophils % 1.4 %; Hematocrit 48.6 % (37-53); Lymphocytes # 1.6 10^3/uL (0.8-4.8); Lymphocytes % 24.7 %; Mean Corpuscular Hemoglobin 29.4 pg (27-33); Mean Corpuscular Volume 86.6 fl (82-101); Mean Platelet Volume 9.2 fL (7.4-10.4); Monocytes # 0.6 10^3/uL (0.2-0.9); Monocytes % 9.8 %; Neutrophils # 3.96 10^3/uL (1.8-7.7); Neutrophils % 62.4 %; Nucleated Red Blood Cells % 0 %; Platelet Count 292 10^3/cmm (157-399); Red Blood Count 5.61 10^6/uL (3.85-5.65); Red Cell Distribution Width 12.3 % (12.1-15.1); White Blood Count 6.35 10^3/uL (3.29-11.43)
[2024-09-16 17:32] LABS: Troponin(5th) Baseline 7 ng/L (0-15)
[2024-09-16 17:40] LABS: Alanine Aminotransferase 48 U/L (0-41); Albumin Level 4.5 g/dL (3.5-5.2); Alkaline Phosphatase 186 U/L (40-130); Anion Gap 16.2 (5-19); Aspartate Amino Transferase 36 U/L (0-40); Blood Urea Nitrogen 13 mg/dL (6-20); Calcium 9.7 mg/dL (8.5-10.5); Carbon Dioxide 26 mmol/L (22-29); Chloride 93 mmol/L (98-107); Creatinine Clr Calc Pharmacy 89.8197; Globulin 3.7 g/dL (1.3-4.6); Glomerular Filtration Rate 71.8 mL/min (90-130); Glucose 167 mg/dL (65-115); NT Pro B Type Natriuretic Pept 53 pg/mL (0-125); Osmolality Calculated 276 mOsm/kg (285-295); Potassium 4.2 mmol/L (3.5-5.1); Sodium 131 mmol/L (136-145); Total Bilirubin 0.5 mg/dL (0.15-1.2); Total Protein 8.2 g/dL (6.6-8.7)
--- NOTE | 2024-09-16 18:28 | ECG_ITS ---
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 Measurements Intervals [place] Rate: 74 P: 43 [place]: 157 QRS: 10 QRSD: 88 T: 57 QT: 407 QTc: 453 Interpretive Statements SINUS RHYTHM Compared to ECG 09/16/2024 16:33:03 No significant changes Electronically Signed On 09-16-2024 19:34:04 SUPERINTENDENT PIPELINES by Adi Mendez M.D. [id number]
[2024-09-16 19:17] LABS: Bilirubin Urine Negative (Negative); Blood Urine Negative (Negative); Glucose Urine UA Negative (Normal); Ketones Urine Trace (Negative); Leukocyte Esterase Urine Negative (Negative); Nitrate Urine Negative (Negative); Protein Urine Negative (Negative); Specific Gravity, Urine 1.007 (1.005-1.030); Urine Appearance Clear (CLEAR); Urine Color Yellow (Yellow); Urobilinogen Urine 0.2 mg/dL (Negative)
[2024-09-16 19:19] LABS: Add Urine Microscopic? YES; Bacteria Urine None Seen /hpf; Hyaline Casts Urine 0-4 /lpf; RBC Urine 0-2 /hpf (0-2); Squamous Epithelial Cell Urine 0-5 /hpf (0-5); WBC Urine 0-5 /hpf (0-5)
[2024-09-16 19:29] LABS: Troponin 5 2HR 6.31 ng/L (0-15)
[2024-09-16 19:31] LABS: Troponin 5 2HR Delta -0.69 ABS# (0-10)
[2024-09-16 23:02] VITALS: BP 107/72; PULSE 66; RESP 18; O2SAT 99
--- NOTE | 2024-09-16 23:19 | ECG_ITS ---
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 Measurements Intervals [place] Rate: 60 P: 25 OR: 161 QRS: 5 QRSD: 93 T: 59 QT: 450 QTc: 450 Interpretive Statements SINUS RHYTHM Compared to ECG 09/16/2024 18:45:32 No significant changes Electronically Signed On 09-18-2024 18:07:32 IGNITION EXPERT by Adi Mendez M.D. [id number]
[2024-09-16 23:20] LABS: Troponin 5 6HR 8.12 ng/L (0-15); Troponin 5 6HR Delta 1.12 ng/L (0-12)
[2024-09-16 23:30] VITALS: BP 118/74; PULSE 72; RESP 16; O2SAT 97
--- NOTE | 2024-09-16 23:43 | W.ED.DIZZY ---
HPI - Dizziness General: Chief Complaint: Dizziness Stated Complaint: n,light headed Time Seen by Provider: 09/16/24 23:03 Source: patient Mode of arrival: ambulatory Limitations: no limitations History of Present Illness: HPI Narrative: Patient is a 49-year-old male present to the emergency department complaining of cough and dizziness for weeks. Patient was sent by cardiology office, to rule out ACS. Patient recently was switched from prescriptive Lasix to as needed, as it was thought this might be playing a role in his symptoms. However he states that his recently had an illness and bronchitis, she has since gotten over this but he is having similar symptoms. He states that he will cough until he starts getting dizzy, nonproductive. This is gotten worse over the past week or so. He is not reporting any chest pain, shortness of breath, peripheral edema, or other symptoms at this time. Vital stable at this time. MD elicited complaint: dizziness and other (Cough) Onset (ago): week(s) Timing: gradual onset Context: change in medication and other (Sick contact exposure) Associated symptoms: Denies chest pain, chills, headache(s), nausea, palpitations or vomiting Associated neuro symptoms: Deny numbness in extremities Related Data Home Medications Medication Instructions Recorded Confirmed cholecalciferol (vitamin D3) 50 50 mcg PO DAILY 10/25/19 09/16/24 mcg (2,000 unit) capsule selenium sulfide 2.25 % shampoo 5 ml topical DAILY 10/25/19 09/16/24 triamcinolone acetonide 0.025 % 1 applic topical TID 10/25/19 09/16/24 topical cream naloxone 4 mg/actuation nasal 4 mg intranasal Q2M PRN overdose 03/09/23 09/16/24 spray (Narcan) Previous Rx's Medication Instructions Recorded rosuvastatin 20 mg tablet 20 mg PO DAILY #90 tabs 10/06/21 tamsulosin 0.4 mg capsule 0.4 mg PO DAILY #30 caps 01/21/22 nitroglycerin 0.4 mg sublingual 0.4 mg sublingual Q5M PRN Chest 01/31/22 tablet (Nitrostat) Pain #25 tabs blood-glucose meter,continuous #1 ea 06/21/23 (Dexcom G7 Luggage Attendant) insulin aspart U-100 100 unit/mL See Rx Instructions .Route 08/16/23 (3 mL) subcutaneous pen (Novolog .COMPLEX #18 mL FlexPen U-100 Insulin aspart) metoprolol tartrate 25 mg tablet 25 mg PO BID #180 tabs 09/07/23 furosemide 40 mg tablet (Lasix) 20 mg (1/2 x 40 mg) PO QAM #90 tabs 12/18/23 insulin glargine 100 unit/mL (3 45 unit (0.45 mL) SUBCUT QAM #40 mL 03/14/24 mL) subcutaneous pen (Lantus Solostar U-100 Insulin) blood-glucose sensor (Dexcom G7 #9 ea 07/04/24 Sensor device) potassium chloride 10 mEq See Rx Instructions .Route 07/10/24 tablet,extended release(part/cryst) .COMPLEX #270 tabs clomipramine 25 mg capsule 25 mg PO DIRECTED #120 caps 09/04/24 aripiprazole 2 mg tablet (Abilify) 2 mg PO DAILY #30 tabs 09/09/24 clonazepam 1 mg tablet 1 mg PO TID PRN anxiety #90 tabs 09/09/24 vortioxetine 20 mg tablet 20 mg PO DAILY #30 tabs 09/09/24 azithromycin 500 mg tablet 500 mg PO DAILY 5 days #5 tabs 09/16/24 prednisone 20 mg tablet 60 mg (3 x 20 mg) PO ONCE 5 days 09/16/24 #15 tabs Allergies Allergy/AdvReac Type Severity Reaction Status Date / Time atorvastatin AdvReac pancreatiti Verified 09/16/24 15:24 s liraglutide [From Victoza] AdvReac pancreatiti Verified 09/16/24 15:24 s metformin AdvReac pancreatiti Verified 09/16/24 15:24 s sitagliptin [From Januvia] AdvReac pancreatiti Verified 09/16/24 15:24 s Review of Systems General: Reports: 10 or more systems reviewed and unremarkable except in HPI and below Const: Denies: fever(s), chills or fatigue Eyes: Denies: change in vision ENMT: Denies: throat pain, ear or mastoid pain or nasal discharge Card: Denies: chest pain, palpitations, swelling of feet/ankles or lightheadedness Resp: Reports: non-productive cough; Denies: dyspnea or wheezing GI: Denies: abdominal pain, nausea, vomiting, diarrhea or constipation : Denies: flank pain, difficulty urinating, dysuria or urinary frequency Musc: Denies: neck pain, back pain or joint pain Skin/Breast: Denies: rash Neuro: Reports: dizziness; Denies: headache(s), numbness in extremities or weakness in extremities PFSH ED PFSH: Medical History Obsessive compulsive disorder Major depressive disorder, recurrent Lower urinary tract symptoms (LUTS) Systolic heart failure Psychiatric care Encounter for long-term opiate analgesic use Cardiomyopathy Supraventricular tachycardia Opioid contract exists Obstructive sleep apnea, adult Chronic GERD Other obsessive-compulsive disorder Generalized anxiety disorder Post-traumatic stress disorder, chronic Spondylosis without myelopathy or radiculopathy, lumbar region Arthritis DDD (degenerative disc disease), lumbar Facet arthritis of lumbar region Surgical History S/P eye surgery LEFT EYE Status post placement of cardiac pacemaker Hx of lymph node excision SEVERAL REMOVED FROM LEFT SIDE/ NECK Status post implantation of automatic cardioverter/defibrillator (AICD) Family History Father Myocardial infarct CABG Diabetes CAD (coronary artery disease) Mother Diabetes Hypertension Other Cancer Stroke Denies family history of Anesthesia complication Bleeding disorder Social History Smoking and tobacco/nicotine status: never used tobacco/nicotine Quit status (tobacco/nicotine): has quit using Former quit date comment: 11 YEARS AGO Second hand smoke exposure: No Alcohol intake: never Substance/Drug Use: never Marital status: Current occupational status: disabled Current gender identity: Male Physical Exam Const: COMMON NORMALS: no acute distress, patient oriented x3 and no limitations GENERAL APPEARANCE: cooperative, comfortable and well developed ORIENTATION/CONSCIOUSNESS: Yes awake, Yes oriented to person, Yes oriented to place and Yes oriented to time HENMT: COMMON NORMALS: normocephalic, atraumatic and hearing grossly normal bilaterally HEAD & SCALP: normocephalic and atraumatic Eye: COMMON NORMALS: Equal, round and reactive pupils present, EOMs intact bilaterally and conjunctivae normal CONJUNCTIVA: Yes conjunctivae normal PUPIL: Yes Equal, round and reactive pupils present Neck/C-Spine: COMMON NORMALS: full ROM, supple and no JVD Resp: COMMON NORMALS: normal respiratory effort, No retractions, No use of accessory muscles and clear to auscultation bilaterally AUSCULTATION: clear to auscultation bilaterally Cardio: COMMON NORMALS: no JVD, regular rate, regular rhythm, No clicks present (Cardio), No murmurs present (Cardio) and No rub (Cardio) RATE: regular rate RHYTHM: regular rhythm GI: COMMON NORMALS: Normal to inspection, nondistended, normoactive bowel sounds present, Soft to palpation and non-tender AUSCULTATION: Yes normoactive bowel sounds PALPATION: Yes Soft to palpation RECTAL EXAM: Yes deferred Extremity: COMMON NORMALS: normal to inspection, full ROM, capillary refill normal and no pedal edema Neuro: COMMON NORMALS: patient oriented x3, CN's II-XII intact bilaterally, moves all extremities, no focal motor deficits and no sensory deficits noted SENSORIUM/ORIENTATION: Yes oriented to person, Yes oriented to place and Yes oriented to time Psych: COMMON NORMALS: mental status grossly normal and Normal thought process present THOUGHT PROCESS: Normal thought process present Skin: COMMON NORMALS: no rashes or lesions noted GENERAL SKIN EXAM: no rashes or lesions noted Course Vital Signs: Vital signs: Vital Signs Temperature 97.6 F 09/16/24 16:29 Pulse Rate 66 09/16/24 23:02 Respiratory Rate 18 09/16/24 23:02 Blood Pressure 107/72 09/16/24 23:02 Pulse Oximetry 99 09/16/24 23:02 Oxygen Delivery Me thod Room Air 09/16/24 23:02 MDM - Dizziness Medical Decision Making Patient seen by cardiology office to rule out cardiac cause of his cough and dizziness. This has been evolving over a couple of weeks, sick contact exposure to . Also had Lasix dose switched from every day to as needed. Did not appear clinically fluid overloaded on physical exam, heart and lungs sounded normal and no peripheral edema noted. Troponin, 2-hour troponin, and 6-hour troponin nondiagnostic. EKG showing normal sinus rhythm with no STEMI. Chest x-ray normal. Lab work all normal including nondiagnostic BNP. With the sick contact exposure being reported, likely his cough favors a bronchitis with potentially an atypical infection due to the longevity of his symptoms. For this we will treat with steroids and azithromycin, short courses of both. Also have him closely follow-up with cardiology to see if they have any further recommendations or workup. Return precautions given. Patient comfortable with discharge home at this time. Vitals have been stable throughout ED course. Lab Data 09/16/24 17:01 09/16/24 17:01 Radiology Impressions Chest X-Ray 09/16/24 16:28 IMPRESSION: No acute findings. Laboratory Results WBC 6.35 10^3/uL (3.29-11.43) 09/16/24 17:01 RBC 5.61 10^6/uL (3.85-5.65) 09/16/24 17:01 Hgb 16.50 g/dL (11.27-16.99) 09/16/24 17:01 Hct 48.6 % (37-53) 09/16/24 17:01 MCV 86.6 fl (82-101) 09/16/24 17:01 MCH 29.4 pg (27-33) 09/16/24 17: MCHC 34.0 g/dL (30-55) 09/16/24 17:01 RDW 12.3 % (12.1-15.1) 09/16/24 17:01 Plt Count 292 10^3/cmm (157-399) 09/16/24 17:01 MPV 9.2 fL (7.4-10.4) 09/16/24 17:01 Neut % (Auto) 62.4 % 09/16/24 17:01 Lymph % (Auto) 24.7 % 09/16/24 17:01 [place] % (Auto) 9.8 % 09/16/24 17:01 Eos % (Auto) 1.4 % 09/16/24 17:01 Baso % (Auto) 0.9 % 09/16/24 17:01 Neut # (Auto) 3.96 10^3/uL (1.8-7.7) 09/16/24 17:01 Lymph # (Auto) 1.6 10^3/uL (0.8-4.8) 09/16/24 17:01 [place] # (Auto) 0.6 10^3/uL (0.2-0.9) 09/16/24 17:01 Eos # (Auto) 0.1 10^3/uL (0.0-0.8) 09/16/24 17:01 Baso # (Auto) 0.1 10^3/uL (0.0-0.1) 09/16/24 17:01 Nucleated RBC % (auto) 0 % 09/16/24 17:01 Nucleated RBCs # 0.0 /100WBC 09/16/24 17:01 Sodium 131 mmol/L (136-145) L 09/16/24 17:01 Potassium 4.2 mmol/L (3.5-5.1) 09/16/24 17:01 Chloride 93 mmol/L (98-107) L 09/16/24 17:01 Carbon Dioxide 26 mmol/L (22-29) 09/16/24 17:01 Anion Gap 16.2 (5-19) 09/16/24 17:01 BUN 13 mg/dL (6-20) 09/16/24 17:01 Creatinine 1.1 mg/dL (0.7-1.2) 09/16/24 17:01 GFR Calculation 71.8 mL/min (90-130) L 09/16/24 17:01 Glucose 167 mg/dL (65-115) H 09/16/24 17:01 Calculated Osmolality 276 mOsm/kg (285-295) L 09/16/24 17:01 Calcium 9.7 mg/dL (8.5-10.5) 09/16/24 17:01 Total Bilirubin 0.5 mg/dL (0.15-1.2) 09/16/24 17:01 AST 36 U/L (0-40) 09/16/24 17:01 ALT 48 U/L (0-41) H 09/16/24 17:01 Alkaline Phosphatase 186 U/L (40-130) H 09/16/24 17:01 Troponin T Baseline 7 ng/L (0-15) 09/16/24 17:01 Troponin T 120 Minute 6.31 ng/L (0-15) 09/16/24 19:08 Delta Troponin T -0.69 ABS# (0-10) L 09/16/24 19:08 Troponin T Hi Sens 6Hr 8.12 ng/L (0-15) 09/16/24 22:59 Troponin T Hi Sens 6Hr Delta 1.12 ng/L (0-12) 09/16/24 22:59 NT-Pro-B Natriuret Pep 53 pg/mL (0-125) 09/16/24 17:01 Total Protein 8.2 g/dL (6.6-8.7) 09/16/24 17:01 Albumin 4.5 g/dL (3.5-5.2) 09/16/24 17:01 Globulin 3.7 g/dL (1.3-4.6) 09/16/24 17:01 Urine Color Yellow (Yellow) 09/16/24 19:06 Urine Appearance Clear (CLEAR) 09/16/24 19:06 Urine pH 6.0 (5-7) 09/16/24 19:06 Ur Specific [place] 1.007 (1.005-1.030) 09/16/24 19:06 Urine Protein Negative (Negative) 09/16/24 19:06 Urine Glucose (UA) Negative (Normal) 09/16/24 19:06 Urine Ketones Trace (Negative) 09/16/24 19:06 Urine Blood Negative (Negative) 09/16/24 19:06 Urine Nitrate Negative (Negative) 09/16/24 19:06 Urine Bilirubin Negative (Negative) 09/16/24 19:06 Urine Urobilinogen 0.2 mg/dL (Negative) 09/16/24 19:06 Ur Leukocyte Esterase Negative (Negative) 09/16/24 19:06 Urine RBC 0-2 /hpf (0-2) 09/16/24 19:06 Urine WBC 0-5 /hpf (0-5) 09/16/24 19:06 Ur Squamous Epith Cells 0-5 /hpf (0-5) 09/16/24 19:06 Amorphous Sediment Not Reportable 09/16/24 19:06 Urine Bacteria None seen /hpf (NONE) 09/16/24 19:06 Hyaline Casts 0-4 /lpf H 09/16/24 19:06 All radiology interpretation(s) finalized by discharge Discharge Plan Discharge Patient Disposition: Home Clinical Impression: Bronchitis Condition: Stable Prescriptions: New prednisone 20 mg tablet 60 mg PO ONCE 5 Days Qty: 15 0RF azithromycin 500 mg tablet 500 mg PO DAILY 5 Days Qty: 5 0RF No Action selenium sulfide 2.25 % shampoo 5 ml TOPICAL DAILY triamcinolone acetonide 0.025 % cream 1 applic TOPICAL TID cholecalciferol (vitamin D3) 50 mcg (2,000 unit) capsule 50 mcg PO DAILY rosuvastatin 20 mg tablet 20 mg PO DAILY Qty: 90 3RF (DME) Dexcom G7 Luggage Attendant Misc See Rx Instructions .ROUTE .MEDSUPPLY Qty: 1 0RF Rx Instructions: As directed furosemide [Lasix] 40 mg tablet 20 mg PO QAM Qty: 90 3RF aripiprazole [Abilify] 2 mg tablet 2 mg PO DAILY Qty: 30 2RF clonazepam 1 mg tablet 1 mg PO TID PRN (Reason: anxiety) Qty: 90 0RF vortioxetine 20 mg tablet 20 mg PO DAILY Qty: 30 2RF nitroglycerin [Nitrostat] 0.4 mg tablet, sublingual 0.4 mg SUBLINGUAL Q5M PRN (Reason: Chest Pain) Qty: 25 3RF insulin aspart U-100 [Novolog FlexPen U-100 Insulin] 100 unit/mL (3 mL) insulin pen See Rx Instructions .ROUTE .COMPLEX Qty: 18 0RF Dose Instruction: ADMINISTER 15 UNITS UNDER THE SKIN THREE TIMES DAILY Rx Instructions: ADMINISTER 15 UNITS UNDER THE SKIN THREE TIMES DAILY metoprolol tartrate 25 mg tablet 25 mg PO BID Qty: 180 3RF insulin glargine [Lantus Solostar U-100 Insulin] 100 unit/mL (3 mL) insulin pen 45 unit SUBCUT QAM Qty: 40 0RF (DME) Dexcom G7 Sensor Device See Rx Instructions .ROUTE .MEDSUPPLY Qty: 9 1RF Rx Instructions: As directed potassium chloride 10 mEq tablet,ER particles/crystals See Rx Instructions .ROUTE .COMPLEX Qty: 270 3RF Dose Instruction: TAKE 2 TABLETS BY MOUTH IN THE MORNING AND 1 TABLET IN THE EVENING Rx Instructions: TAKE 2 TABLETS BY MOUTH IN THE MORNING AND 1 TABLET IN THE EVENING clomipramine 25 mg capsule 25 mg PO DIRECTED Qty: 120 2RF Rx Instructions: 1 PO AM, 3 PO HS tamsulosin 0.4 mg capsule 0.4 mg PO DAILY Qty: 30 0RF Narcan 4 mg/actuation spray,non-aerosol 4 mg intranasal Q2M PRN (Reason: overdose) Rx Instructions: spray 1 dose into ONE nostril; alternate nostrils w each dose until help arrives Discharge Orders: Discharge ED (Routine); Ordered 09/16/24 Ordered By: Aime Teran Referrals: Héctor Snyder MD [Primary Care Provider] - Patient Instructions: Acute Bronchitis (ED) Activity Restrictions/Additional Instructions: Please follow-up with cardiology closely. Take antibiotics and steroids. Please return with any new or worsening symptoms may have. Coding Level of Care Code ED Business Transformation Manager for Keith Robertson
[2024-09-17 00:02] VITALS: BP 102/71; PULSE 84; RESP 20; O2SAT 94
== END 2024-09-17 00:04 | disposition home or self-care (01) ==
PROVIDERS: Physician Assistant; Emergency Provider Physician Assistant; PCP Family Medicine
DX: J40 Bronchitis, not specified as acute or chronic (principal); Z79.4 Long term (current) use of insulin; Z87.891 Personal history of nicotine dependence; I50.20 Unspecified systolic (congestive) heart failure
CPT/HCPCS: 36415; 71045; 80053; 81001; 83880; 84484; 85025; 93005; 99214; 99285

== ENCOUNTER 2024-10-15 12:37 | Outpatient (CLI) | payer MEDICAID, SELFPAY ==
[2024-04-10 10:46] VITALS: BP 110/72; BMI 34.6
--- NOTE | 2024-10-15 13:30 | USCV_ITS ---
Nguyễn Nieto Age: 49 Gender: M : 1975 Exam Date: 10/15/2024 13:03 Ordering Phys: Carrie Toure NP Technologist: CT Exam Location: [facility] [place]_ Indication: BP: 94 / 64 HR: 87 Rhythm: Sinus Technical Quality: Adequate MEASUREMENTS (Male / Female) Normal Values 2D ECHO LVOT Diameter 2.2 cm LV Ejection Fraction MOD 4C 52.1 % LV Ejection Fraction MOD 2C 59.4 % LV Ejection Fraction 2C AL 59.8 % LA Diameter 3.5 cm RA Systolic Volume 4C AL 19.3 ml RA Systolic Volume 4C MOD 19.4 ml LA Sys Volume AL 26.0 cm cubed LA Sys Volume Index AL 12.3 cm cubed/m squared Aorta at Sinotubular Diameter 2.4 cm IVC Diameter 1.4 cm M-MODE LA Ao Ratio MM 1.3 AV Cusp Separation MM 1.9 cm DOPPLER AV Peak Velocity 104.0 cm/s LVOT Peak Velocity 65.0 cm/s AV Area Cont Eq vti 2.6 cm squared AV Area Cont Eq pk 2.4 cm squared MV Peak Velocity 59.0 cm/s MV Area PHT 3.7 cm squared Mitral E to A Ratio 1.0 TR Peak Velocity 124.0 cm/s TR Peak Gradient 6.2 mmHg TV Peak E Velocity 63.0 cm/s PV Peak Velocity 94.5 cm/s FINDINGS Left Ventricle Normal LV size with a slightly diminished ejection fraction of 50 to 55%. Mild diffuse hypokinesis of the inferolateral wall segment Right Ventricle The right ventricle is normal in size and function. Right Atrium The right atrium is normal in size. Left Atrium The left atrium is normal in size. Mitral Valve No gross abnormalities noted Aortic Valve No gross abnormalities noted Tricuspid Valve No gross abnormalities noted Pulmonic Valve No gross abnormalities noted Pericardium Normal pericardium without effusion. Aorta Normal ascending aorta dimension. IVC The inferior vena cava appears normal. CONCLUSIONS Normal LV size with a slightly diminished ejection fraction of 50 to 55%. Mild diffuse hypokinesis of the inferolateral wall segment. No significant valvular lesions Normal cardiac chamber sizes. There is no pericardial effusion. There are no intracardiac masses. Compared to the study from 01/12/2023, there may not be significant change Dr Adi Mendez MD FACC (Electronically Signed) Final Date: 15 October 2024 23:28 S
== END 2024-10-15 12:38 | disposition home or self-care (01) ==
LOC: RAD 12:38
PROVIDERS: PCP Family Medicine; Visit Provider Nurse Practitioner Family
DX: I42.0 Dilated cardiomyopathy (principal)
CPT/HCPCS: 93306

== ENCOUNTER 2024-11-22 10:37 | Outpatient (CLI) | payer MEDICAID, SELFPAY ==
[2024-04-10 10:46] VITALS: BP 110/72; BMI 34.6
[2024-11-22 11:15] LABS: Estmated Average Glucose 163; Hemoglobin A1C 7.3 % (4.0-6.0)
[2024-11-22 11:21] LABS: Albumin Level 4.2 g/dL (3.5-5.2); Alkaline Phosphatase 145 U/L (40-130); Blood Urea Nitrogen 9 mg/dL (6-20); Calcium 9.3 mg/dL (8.5-10.5); Carbon Dioxide 24 mmol/L (22-29); Chloride 99 mmol/L (98-107); Cholesterol 112 mg/dL (0-200); Globulin 3.4 g/dL (1.3-4.6); Glomerular Filtration Rate 90.4 mL/min (90-130); Glucose 148 mg/dL (65-115); HDL Cholesterol 32 mg/dL (60-100); LDL Cholesterol Calculated 48 mg/dL (50-129); Osmolality Calculated 277 mOsm/kg (285-295); Sodium 133 mmol/L (136-145); Total Bilirubin 0.4 mg/dL (0.15-1.2); Total Protein 7.6 g/dL (6.6-8.7); Triglycerides 159 mg/dL (0-150)
[2024-11-22 11:26] LABS: Alanine Aminotransferase 25 U/L (0-41); Anion Gap 14.2 (5-19); Aspartate Amino Transferase 21 U/L (0-40); Potassium 4.2 mmol/L (3.5-5.1)
[2024-11-22 11:27] LABS: Creatinine Urine, Random 16 mg/dL (39-259); Microalbumin Random Urine 1 ug/dL (0-20)
[2024-11-22 11:28] LABS: Microalbum Creatinine Ratio Ur 63 mg/dL (0-20)
== END 2024-11-22 10:38 | disposition home or self-care (01) ==
PROVIDERS: PCP Family Medicine; Visit Provider Internal Medicine
DX: E11.9 Type 2 diabetes mellitus without complications (principal); E11.40 Type 2 diabetes mellitus with diabetic neuropathy, unspecified; E78.49 Other hyperlipidemia; E16.0 Drug-induced hypoglycemia without coma; T38.3X5A Adverse effect of insulin and oral hypoglycemic [antidiabetic] drugs, initial encounter; X58.XXXA Exposure to other specified factors, initial encounter
CPT/HCPCS: 36415; 80053; 80061; 82044; 83036

== ENCOUNTER → 2025-01-10 08:50 | Outpatient (BNVA) | payer MEDICAID, SELFPAY ==
[2024-11-25 15:17] VITALS: BP 102/71; BMI 31.8
== END ==
PROVIDERS: PCP Family Medicine; Visit Provider Internal Medicine
DX: E16.0 Drug-induced hypoglycemia without coma (principal); T38.3X5A Adverse effect of insulin and oral hypoglycemic [antidiabetic] drugs, initial encounter; E78.49 Other hyperlipidemia; E11.40 Type 2 diabetes mellitus with diabetic neuropathy, unspecified
CPT/HCPCS: 99214

== ENCOUNTER → 2025-02-14 08:59 | Outpatient (BNVA) | payer MEDICAID, SELFPAY ==
[2024-11-25 15:17] VITALS: BP 102/71; BMI 31.8
== END ==
PROVIDERS: PCP Family Medicine; Referring Provider Family Medicine; Visit Provider Nurse Practitioner Family
DX: M54.42 Lumbago with sciatica, left side (principal); M54.41 Lumbago with sciatica, right side; G89.29 Other chronic pain; M47.26 Other spondylosis with radiculopathy, lumbar region
CPT/HCPCS: 99214

== ENCOUNTER → 2025-02-21 07:57 | Outpatient (BNVA) | payer MEDICAID, SELFPAY ==
[2024-11-25 15:17] VITALS: BP 102/71; BMI 31.8
== END ==
PROVIDERS: PCP Family Medicine; Visit Provider Nurse Practitioner Family
DX: M79.18 Myalgia, other site (principal); M54.42 Lumbago with sciatica, left side; M54.41 Lumbago with sciatica, right side; G89.29 Other chronic pain; M47.816 Spondylosis without myelopathy or radiculopathy, lumbar region
CPT/HCPCS: 20553; 72110; 99214; J1010; J3490

== ENCOUNTER → 2025-03-07 07:54 | Outpatient (BNVA) | payer MEDICAID, SELFPAY ==
[2024-11-25 15:17] VITALS: BP 102/71; BMI 31.8
== END ==
PROVIDERS: PCP Family Medicine; Visit Provider Nurse Practitioner Family
DX: M54.42 Lumbago with sciatica, left side (principal); M54.41 Lumbago with sciatica, right side; G89.29 Other chronic pain; M47.816 Spondylosis without myelopathy or radiculopathy, lumbar region
CPT/HCPCS: 99214

== ENCOUNTER → 2025-03-14 10:40 | Outpatient (BNVA) | payer MEDICAID, SELFPAY ==
[2024-11-25 15:17] VITALS: BP 102/71; BMI 31.8
== END ==
PROVIDERS: PCP Family Medicine; Visit Provider Internal Medicine
DX: Z45.02 Encounter for adjustment and management of automatic implantable cardiac defibrillator (principal)
CPT/HCPCS: 93296

== ENCOUNTER → 2025-04-04 08:03 | Outpatient (BNVA) | payer MEDICAID, SELFPAY ==
[2024-11-25 15:17] VITALS: BP 102/71; BMI 31.8
== END ==
PROVIDERS: PCP Family Medicine; Visit Provider Nurse Practitioner Family
DX: M54.16 Radiculopathy, lumbar region (principal); M54.42 Lumbago with sciatica, left side; M54.41 Lumbago with sciatica, right side; G89.29 Other chronic pain; M47.816 Spondylosis without myelopathy or radiculopathy, lumbar region
CPT/HCPCS: 99214

== ENCOUNTER → 2025-04-11 09:05 | Outpatient (BNVA) | payer MEDICAID, SELFPAY ==
[2024-11-25 15:17] VITALS: BP 102/71; BMI 31.8
== END ==
PROVIDERS: PCP Family Medicine; Visit Provider Internal Medicine
DX: E11.65 Type 2 diabetes mellitus with hyperglycemia (principal); E11.40 Type 2 diabetes mellitus with diabetic neuropathy, unspecified; E78.49 Other hyperlipidemia; E16.0 Drug-induced hypoglycemia without coma; E11.9 Type 2 diabetes mellitus without complications
CPT/HCPCS: 99214

== ENCOUNTER 2025-04-21 09:19 | Outpatient (CLI) | payer MEDICAID, SELFPAY ==
[2024-11-25 15:17] VITALS: BP 102/71; BMI 31.8
--- NOTE | 2025-04-21 10:00 | CTR_ITS ---
PROCEDURE INFORMATION: Exam: CT Lumbar Spine Without Contrast Exam date and time: 04/21/2025 10:16 AM Age: 50 years old Clinical indication: Pain; Other: Radiculopathy; Prior surgery; Surgery date: 6+ months; Surgery type: Nerve burning; Additional info: M54.16 - radiculopathy, lumbar region, TECHNIQUE: Imaging protocol: Computed tomography of the lumbar spine without contrast. Radiation optimization: All CT scans at this facility use at least one of these dose optimization techniques: automated exposure control; mA and/or kV adjustment per patient size (includes targeted exams where dose is matched to clinical indication); or iterative reconstruction. COMPARISON: CR XR lumbar spine min 4V [id number] 02/21/2025 11:17 AM RADIATION DOSE METRICS: Total DLP (mGy-cm): 378.45 FINDINGS: Bones/joints: The lumbar vertebral body heights are maintained. Chronic T12 compression deformity. The lumbar vertebral bodies are normally aligned. L1-L2: No significant disc bulge or herniation. No severe spinal canal stenosis. No significant neuroforaminal narrowing. L2-L3: No significant disc bulge or herniation. No severe spinal canal stenosis. No significant neurlforaminal narrowing. L3-L4: Broad concentric disc bulge without any significant central canal stenosis. Mild bilateral neuroforaminal narrowing. L4-L5: Broad concentric disc bulge without any significant central canal stenosis. [id number] bilateral neuroforaminal narrowing. L5-S1: No significant disc bulge or herniation. No severe spinal canal stenosis. No significant neuroforaminal narrowing. Soft tissues: Calcified plaque is seen involving the abdominal aorta and common iliac arteries. CT/CT lumbar spine wo con* [id number] IMPRESSION: No acute bony abnormality. Mild degenerative changes of the lumbar spine. If symptoms persist, consider further evaluation with MRI, if there are no contraindications to obtaining a MRI scan.
== END 2025-04-21 09:20 | disposition home or self-care (01) ==
PROVIDERS: PCP Family Medicine; Visit Provider Nurse Practitioner Family
DX: M54.16 Radiculopathy, lumbar region (principal)
CPT/HCPCS: 72131

== ENCOUNTER → 2025-05-05 09:26 | Outpatient (BNVA) | payer MEDICAID, SELFPAY ==
[2025-05-05 09:46] VITALS: BP 102/71; BMI 31.8
== END ==
PROVIDERS: PCP Family Medicine; Visit Provider Nurse Practitioner Family
DX: M54.42 Lumbago with sciatica, left side (principal); M54.41 Lumbago with sciatica, right side; G89.29 Other chronic pain; M47.816 Spondylosis without myelopathy or radiculopathy, lumbar region
CPT/HCPCS: 99214

== ENCOUNTER → 2025-05-27 12:35 | Outpatient (BNVA) | payer MEDICAID, SELFPAY ==
[2025-05-05 09:46] VITALS: BP 102/71; BMI 31.8
== END ==
PROVIDERS: PCP Family Medicine; Visit Provider Nurse Practitioner Family
DX: M79.18 Myalgia, other site (principal); M47.816 Spondylosis without myelopathy or radiculopathy, lumbar region; M54.42 Lumbago with sciatica, left side; M54.41 Lumbago with sciatica, right side; G89.29 Other chronic pain
CPT/HCPCS: 20553; 99214; J1010; J3490

== ENCOUNTER 2025-07-04 13:59 | Outpatient (CLI) | payer MEDICAID, SELFPAY ==
[2025-05-05 09:46] VITALS: BP 102/71; BMI 31.8
[2025-07-04 14:42] LABS: Estmated Average Glucose 194; Hemoglobin A1C 8.4 % (4.0-6.0)
[2025-07-04 14:45] LABS: Alanine Aminotransferase 21 U/L (0-41); Albumin Level 4.3 g/dL (3.5-5.2); Alkaline Phosphatase 116 U/L (40-130); Anion Gap 15.8 (5-19); Aspartate Amino Transferase 17 U/L (0-40); Blood Urea Nitrogen 11 mg/dL (6-20); Calcium 8.9 mg/dL (8.5-10.5); Carbon Dioxide 27 mmol/L (22-29); Chloride 101 mmol/L (98-107); Cholesterol 110 mg/dL (0-200); Globulin 3.1 g/dL (1.3-4.6); Glucose 139 mg/dL (65-115); HDL Cholesterol 42 mg/dL (60-100); Osmolality Calculated 290 mOsm/kg (285-295); Potassium 4.8 mmol/L (3.5-5.1); Sodium 139 mmol/L (136-145); Total Protein 7.4 g/dL (6.6-8.7); Triglycerides 73 mg/dL (0-150)
[2025-07-04 14:49] LABS: Creatinine Urine, Random 35 mg/dL (39-259); Microalbum Creatinine Ratio Ur 29 mg/dL (0-20)
== END 2025-07-04 14:00 | disposition home or self-care (01) ==
PROVIDERS: PCP Family Medicine; Visit Provider Internal Medicine
DX: E16.0 Drug-induced hypoglycemia without coma (principal); T38.3X5A Adverse effect of insulin and oral hypoglycemic [antidiabetic] drugs, initial encounter; X58.XXXA Exposure to other specified factors, initial encounter; E78.49 Other hyperlipidemia; E11.40 Type 2 diabetes mellitus with diabetic neuropathy, unspecified
CPT/HCPCS: 36415; 80053; 80061; 82044; 83036

== ENCOUNTER → 2025-07-11 11:24 | Outpatient (BNVA) | payer MEDICAID, SELFPAY ==
[2025-07-18 15:16] VITALS: BP 101/61; BMI 25.3
== END ==
PROVIDERS: PCP Family Medicine; Visit Provider Internal Medicine
DX: E11.40 Type 2 diabetes mellitus with diabetic neuropathy, unspecified (principal); E78.49 Other hyperlipidemia; E11.649 Type 2 diabetes mellitus with hypoglycemia without coma; E16.0 Drug-induced hypoglycemia without coma; T38.3X5A Adverse effect of insulin and oral hypoglycemic [antidiabetic] drugs, initial encounter; X58.XXXA Exposure to other specified factors, initial encounter
CPT/HCPCS: 99214

== ENCOUNTER → 2025-07-14 09:01 | Outpatient (BNVA) | payer MEDICAID, SELFPAY ==
[2025-07-18 15:16] VITALS: BP 101/61; BMI 25.3
== END ==
PROVIDERS: PCP Family Medicine; Visit Provider Nurse Practitioner Family
DX: M47.816 Spondylosis without myelopathy or radiculopathy, lumbar region (principal); G89.29 Other chronic pain
CPT/HCPCS: 99214